=== PATIENT | male | born 1975 | race Caucasian/White ===

== ENCOUNTER 2016-11-06 15:49 | Inpatient (IN) | payer OTHER ==
--- NOTE | 2016-11-06 16:32 | PDOC ---
History of Present Illness - General History Source: Patient Exam Limitations: No Limitations - History of Present Illness Initial Comments: 11/06/16 17:31 The patient is a 41 year old man with a history of alcoholic cirrhosis and ascites. Presents to the ED complaining of 2 days of diffuse abdominal pain. Defer to resident note for further details. <Najma Amadormichelle - Last Filed: 11/06/16 18:29> <Dayo Larios - Last Filed: 11/06/16 20:27> - General Chief Complaint: Pain, Acute Stated Complaint: ABD PAIN Time Seen by Provider: 11/06/16 16:32 Past History <Ramy Amadorjasmine - Last Filed: 11/06/16 18:29> - Past Medical History Asthma: Yes (Pt is on MDI) Cardiac Disorders: No COPD: No Diabetes: No GI Disorders: Yes Disorders: No HTN: No Kidney Stones: No Suicide Attempt (Hx): No Seizures: No - Surgical History Abdominal Surgery: Yes (TIPS procedure in 2012) - Reproductive History Testicular Surgery: No - Psycho/Social/Smoking Cessation Hx Anxiety: Yes Suicidal Ideation: No Smoking History: Current every day smoker Have you smoked in the past 12 months: Yes Number of Cigarettes Smoked Daily: 3 Information on smoking cessation initiated: No Hx Alcohol Use: No Drug/Substance Use Hx: No Substance Use Type: None Hx Substance Use Treatment: Yes <Dayo Larios - Last Filed: 11/06/16 20:27> - Past Medical History Allergies/Adverse Reactions: Allergies Allergy/AdvReac Type Severity Reaction Status Date / Time banana Allergy Severe Difficulty Verified 11/06/16 15:02 Breathing No Known Drug Allergies Allergy Verified 11/06/16 15:02 Home Medications: Ambulatory Orders Unobtainable [Unobtainable] 11/06/16 Review of Systems - Review of Systems Able to Perform ROS?: Yes Comments:: 11/06/16 17:30 CONSTITUTIONAL: Present: +Chills Absent: Fever, Diaphoresis, Generalized Weakness, Malaise, Loss of Appetite HEENT: Absent: Rhinorrhea, Nasal Congestion, Throat Pain, Throat Swelling, Difficulty Swallowing, Mouth Swelling, Ear Pain, Eye Pain, Visual Changes CARDIOVASCULAR: Present: +Peripheral edema Absent: Chest Pain, Syncope, Palpitations, Irregular Heart Rate, Lightheadedness RESPIRATORY: Absent: Cough, Shortness of Breath, SOB with Exertion, Orthopnea, Wheezing, Stridor, Hemoptysis GASTROINTESTINAL: Present: +Abdominal pain, +Abdominal distension Absent: Nausea, Vomiting, Diarrhea, Constipation, Melena, Hematochezia GENITOURINARY: Present: +Hematuria Absent: Dysuria, Frequency, Urgency, Hesitancy, Flank Pain, Genital Pain MUSCULOSKELETAL: Absent: Myalgia, Arthralgia, Joint Swelling, Back pain, Neck Pain SKIN: Absent: Rash, Itching, Pallor HEMEATOLOGIC/IMMUNOLOGIC: Absent: Easy Bleeding, Easy Bruising, Lymphadenopathy, Frequent infections ENDOCRINE: Absent: Unexplained Weight Gain, Unexplained Weight Loss, Heat Intolerance, Cold Intolerance NEUROLOGIC: Absent: Headache, Focal Weakness, Paresthesias, Vertigo, Lightheadedness, Unsteady Gait, Seizure, Mental Status Changes, Incontinence PSYCHIATRIC: Present: +Alcohol withdrawal Absent: Anxiety, Depression <Max Amador - Last Filed: 11/06/16 18:29> *Physical Exam - Vital Signs Last Vital Signs Temp Pulse Resp BP Pulse Ox 98.7 F 79 18 121/82 99 11/06/16 16:14 11/06/16 16:14 11/06/16 16:14 11/06/16 16:14 11/06/16 16:14 - Physical Exam Comments: 11/06/16 17:29 GENERAL: The patient is awake, alert, and fully oriented, in no acute distress. HEAD: Normal with no signs of trauma. EYES: Right eye subconjunctival hematoma at 6 oclock. Mild scleral icterus. Old ecchymosis in right lower eyelid secondary to fall last week. Pupils equal, round and reactive to light, extraocular movements intact. ENT: Ears normal, nares patent, oropharynx clear without exudates. Moist mucous membranes. NECK: Normal range of motion, supple without lymphadenopathy, JVD, or masses. LUNGS: Breath sounds equal, clear to auscultation bilaterally. No wheezes, and no crackles. HEART: Regular rate and rhythm, normal S1 and S2 without murmur, rub or gallop. ABDOMEN: Soft, but diffusely tender in all 4 quadrants. Normoactive bowel sounds. No guarding, no rebound. No masses. EXTREMITIES: Bilateral pitting edema. Normal range of motion. No clubbing or cyanosis. No cords, erythema, or tenderness. NEUROLOGICAL: Hand tremors. Cranial nerves II through XII grossly intact. Normal speech, normal gait. PSYCH: Normal mood, normal affect. SKIN: Positive spiders. Warm, Dry, normal turgor, no rashes noted. <Max Amador - Last Filed: 11/06/16 18:29> - Vital Signs Last Vital Signs Temp Pulse Resp BP Pulse Ox 98.7 F 79 18 121/82 99 11/06/16 16:14 11/06/16 16:14 11/06/16 16:14 11/06/16 16:14 11/06/16 16:14 <aDyo Larios - Last Filed: 11/06/16 20:27> ED Treatment Course - LABORATORY CBC & Chemistry Diagram: 11/06/16 17:42 11/06/16 17:42 <Max Amador - Last Filed: 11/06/16 18:29> - LABORATORY CBC & Chemistry Diagram: 11/06/16 17:42 11/06/16 17:42 <Dayo Larios - Last Filed: 11/06/16 20:27> Medical Decision Making - Medical Decision Making 11/06/16 20:22 Patient with history of alcohol abuse, daily 1 bottle of vodka, history of alcoholic cirrhosis, prior history of ascites. Patient comes in complaining of abdominal pain and feeling shaky after last drink was 2 AM last night. On examination he has the stigmata of cirrhosis with spider angiomata, anicteric sclera, supple conjunctival hematoma of the right eye, and minor bruises on his skin. His abdominal exam is diffusely tender. Bedside ultrasound was performed to consider possibility of spontaneous bacterial peritonitis. There was no visible ascites to be tapped. Laboratory studies were notable for stigmata of advanced cirrhosis with poor synthetic function. Patient with pancytopenia consistent with hypersplenism, but his platelet count is severely depressed. Repeat CBC ordered for platelet count of 8000. Platelet transfusion of single donor platelets ordered. Patient to be admitted to telemetry for monitoring for alcohol withdrawal. Repeat platelet count pending. <Dayo Larios - Last Filed: 11/06/16 20:27> *DC/Admit/Observation/Transfer - Attestations Scribe Attestion: 11/06/16 17:30 Documentation prepared by Max Amador, acting as medical claims manager for Dayo Larios MD. <Max Amador - Last Filed: 11/06/16 18:29> - Discharge Dispostion Admit: Yes Decision to Admit order Date/Time: 11/06/16 20:26 [facility] 11/06/16 20:26 <Dayo Larios - Last Filed: 11/06/16 20:27> Diagnosis at time of Disposition: Thrombocytopenia Alcoholic cirrhosis of liver Qualifiers: Ascites presence: without ascites Qualified Code(s): K70.30 - Alcoholic cirrhosis of liver without ascites - Discharge Dispostion Condition at time of disposition: Guarded - Referrals Referrals: STAFF,NOT ON [Primary Care Provider] -
[2016-11-06] MEDS ORDERED: morphine CARPU-JECT 4 MG/1 ML DISP.SYRIN IVPUSH ONE (17:10)
--- NOTE | 2016-11-06 17:12 | PDOC ---
History of Present Illness - General Chief Complaint: Pain, Acute Stated Complaint: ABD PAIN Time Seen by Provider: 11/06/16 16:32 History Source: Patient Exam Limitations: No Limitations - History of Present Illness Initial Comments: 41 yo M with h/o asthma, EtOH abuse, pancreatitis and liver cirrhosis with ascites s/p paracethesis and TIPS procedure presented to the ED with abdominal pain x 1 day. Patient stated that he's been drinking since 12 years old, 1 L of vodka/day, last drink was yesterday. The abd pain is located in both RUQ and LLQ, 10/10, stabbing like, intermittent, associated with sob and n/ v. The RUQ pain radiates to RLQ and the LLQ radiates horizontally to RLQ. He also has hematuria daily since 2012 and was told by his doctors that it's related to his failing liver. Denies fever, chills, chest pain, headache, vision change. Past History - Past Medical History Allergies/Adverse Reactions: Allergies Allergy/AdvReac Type Severity Reaction Status Date / Time banana Allergy Severe Difficulty Verified 11/06/16 15:02 Breathing No Known Drug Allergies Allergy Verified 11/06/16 15:02 Home Medications: Ambulatory Orders Albuterol 0.083% Nebulizer Palmira [Ventolin 0.083% Nebulizer Soln -] 1 neb NEB Q6H 11/07/16 Cholestyramine (with Sugar) [Cholestyramine Packet] 4 gm PO DAILY 11/07/16 Folic Acid 1 mg PO DAILY 11/07/16 Pantoprazole Sodium [Protonix -] 40 mg PO BID 11/07/16 Spironolactone [Aldactone] 100 mg PO DAILY 11/07/16 Thiamine HCl [Vitamin B1 -] 100 mg PO DAILY 11/07/16 Asthma: Yes (Pt is on MDI) Cardiac Disorders: No COPD: No Diabetes: No GI Disorders: Yes Disorders: No HTN: No Kidney Stones: No Suicide Attempt (Hx): No Seizures: No - Surgical History Abdominal Surgery: Yes (TIPS procedure in 2012) - Reproductive History Testicular Surgery: No - Psycho/Social/Smoking Cessation Hx Anxiety: Yes Suicidal Ideation: No Smoking History: Current every day smoker Have you smoked in the past 12 months: Yes Number of Cigarettes Smoked Daily: 3 Information on smoking cessation initiated: No Hx Alcohol Use: No Drug/Substance Use Hx: No Substance Use Type: None Hx Substance Use Treatment: Yes Abd/GI Specific PMHX - Complaint Specific PMHX Hepatitis: Yes Pancreatitis: Yes Review of Systems - Review of Systems Able to Perform ROS?: Yes Is the patient limited Tajik proficient: No Constitutional: No: Chills, Fever Respiratory: No: Cough, Shortness of Breath ABD/GI: Yes: Constipated, Nausea, Poor Appetite, Vomiting, Abdominal cramping : Yes: Hematuria Integumentary: No: Pruritus, Rash Neurological: Yes: Tremors *Physical Exam - Vital Signs Last Vital Signs Temp Pulse Resp BP Pulse Ox 98.7 F 79 18 121/82 99 11/06/16 16:14 11/06/16 16:14 11/06/16 16:14 11/06/16 16:14 11/06/16 16:14 - Physical Exam General Appearance: Yes: Moderate Distress HEENT: positive: Pale Conjunctivae, Scleral Icterus (R), Scleral Icterus (L) Respiratory/Chest: positive: Rales (LLL) Cardiovascular: positive: Regular Rhythm, Regular Rate, S1, S2. negative: Murmur Gastrointestinal/Abdominal: positive: Tender, Soft, Guarding, Tenderness. negative: Distended Integumentary: positive: Jaundice Neurologic: positive: Fully Oriented, Alert, Other (tremor on streched hands) ED Treatment Course - LABORATORY CBC & Chemistry Diagram: 11/08/16 05:35 11/08/16 05:35 Medical Decision Making - Medical Decision Making 11/06/16 18:28 41 yo M with h/o EtOH abuse and liver cirrhosis admitted to the ED with abd pain. DDx include SBP, pancreatitis. Will obtain lab work. 11/06/16 19:32 Bedside U/S of abd showed minimal ascites. *DC/Admit/Observation/Transfer Diagnosis at time of Disposition: Thrombocytopenia Alcoholic cirrhosis of liver Qualifiers: Ascites presence: without ascites Qualified Code(s): K70.30 - Alcoholic cirrhosis of liver without ascites - Discharge Dispostion Admit: Yes - Referrals
[2016-11-06] MEDS ORDERED: morphine CARPU-JECT 4 MG/1 ML DISP.SYRIN ONE (17:48)
[2016-11-06 17:50] LABS: BASOPHIL 2.8 % (0-2.0); EOSINOPHIL 0.4 % (0-4.5); MCH 27.2 pg (25.7-33.7); MCHC 31.9 g/dl (32.0-35.9); MEAN CELL VOLUME 85.4 fl (80-96); MEAN PLT VOLUME 8.7 fl (7.5-11.1); NEUTROPHILS 66.5 % (42.8-82.8); RDW 23.1 % (11.9-15.9); WHITE BLOOD COUNT 2.6 K/mm3 (4.0-10.0)
[2016-11-06 18:04] LABS: PLATELET COUNT 8 K/MM3 (134-434)
[2016-11-06 18:16] LABS: INR 1.69 (0.82-1.09); PROTHROMBIN TIME (PATIENT) 18.8 SEC (9.98-11.88)
[2016-11-06 18:19] LABS: ACTIVATED PTT 42.8 SECONDS (26.9-34.4)
[2016-11-06 18:22] LABS: ALBUMIN 2.9 g/dl (3.4-5.0); ALK PHOS 191 U/L (45-117); ANION GAP 11 (8-16); BILIRUBIN,TOTAL 5.1 mg/dL (0.2-1.0); CALCIUM 7.9 mg/dL (8.5-10.1); CO2 25 mmol/L (21-32); COCKROFT - GAULT 213.88; CREATININE 0.5 mg/dL (0.7-1.3); GLUCOSE,RANDOM 82 mg/dL (74-106); SGOT/AST 112 U/L (15-37); SGPT/ALT 23 U/L (12-78); TOT PROT 7.4 g/dl (6.4-8.2)
[2016-11-06] MEDS ORDERED: HYDROmorphone HCL CARPU-JECT 1 MG/1 ML DISP.SYRIN IVPUSH ONE (18:54)
[2016-11-06 20:05] LABS: PLATELET ESTIMATE MARKEDLY DECREASED (NORMAL)
[2016-11-06 20:37] LABS: EOSINOPHIL 0.8 % (0-4.5); MCH 27.4 pg (25.7-33.7); MCHC 32.2 g/dl (32.0-35.9); MEAN CELL VOLUME 85.3 fl (80-96); MEAN PLT VOLUME 8.1 fl (7.5-11.1); NEUTROPHILS 64.4 % (42.8-82.8); RDW 22.5 % (11.9-15.9); WHITE BLOOD COUNT 2.8 K/mm3 (4.0-10.0)
--- NOTE | 2016-11-06 20:40 | HP ---
CHIEF COMPLAINT: abdominal pain PCP: none HISTORY OF PRESENT ILLNESS: 41 yr old man with ETOH abuse, cirrhosis, hx of pancreatitis, hx of ascitis, HTN , asthma, referred from [facility] for abdominal pain. The abdominal pain is nonpositional, diffuse, nonradiating, continuos, feeling like "sharp ice pick" which started 3pm 11/06. The abdominal pain has progressively been getting worse. He had been drinking every day for the past few days, last drink was 2am on Friday. He has had this pain the past due to pancreatitis and his liver. He has had poor po intake for past few days due to drinking, notes 30llb weight loss over 4 months. On friday he tripped and fell hitting his face/right side of head, his uncle called 911 and he was taken to [facility], he says he had a CT scan of the head which was negative for acute hemorrhage and was cleared for discharge with pain medications. denies vomiting, chest pain, sob, fever, diarrhea, constipation, hematuria/ hematochezia. He has a PCP Dr. Barker at [facility] that he has yet to make an appointment with , has a Bead Picker at [facility], but doesn't know the name. Says he was once on the transplant list but due to his ETOH relapse and being Jainism which prohibits blood transfusions he was taken off the list. ER course was notable for: (1) bedside u/s with minimal ascitis (2) low platets, monoplatelets ordered (3) cxry Recent Travel: none PAST MEDICAL HISTORY: Cirrhosis HTN Asthma ETOH abuse- denies withdrawal seizures PAST SURGICAL HISTORY: TIPS procedure 2007, 2012 Social History: [place]/day since he was 12 Alcohol: 1L vodka nearly daily since he was 12, longest abstinence was 2 years Drugs: denies Family History: Denies family history of cancer, HTN, DM, Allergies banana Allergy (Severe, Verified 11/06/16 15:02) Difficulty Breathing No Known Drug Allergies Allergy (Verified 11/06/16 15:02) HOME MEDICATIONS: Home Medications Medication Instructions Recorded Unobtainable [Unobtainable] 11/06/16 REVIEW OF SYSTEMS CONSTITUTIONAL: Present: weight change Absent: fever, chills, diaphoresis, generalized weakness, malaise, loss of appetite HEENT: Absent: rhinorrhea, nasal congestion, throat pain, throat swelling, difficulty swallowing, mouth swelling, ear pain, eye pain, visual changes CARDIOVASCULAR: Absent: chest pain, syncope, palpitations, irregular heart rate, lightheadedness , peripheral edema RESPIRATORY: Absent: cough, shortness of breath, dyspnea with exertion, orthopnea, wheezing, stridor, hemoptysis GASTROINTESTINAL: Present: abdominal pain, Absent: abdominal distension, nausea, vomiting, diarrhea, constipation, melena , hematochezia GENITOURINARY: Absent: dysuria, frequency, urgency, hesitancy, hematuria, flank pain, genital pain MUSCULOSKELETAL: Absent: myalgia, arthralgia, joint swelling, back pain, neck pain SKIN: Absent: rash, itching, pallor HEMATOLOGIC/IMMUNOLOGIC: Absent: easy bleeding, easy bruising, lymphadenopathy, frequent infections ENDOCRINE: Absent: unexplained weight gain, unexplained weight loss, heat intolerance, cold intolerance NEUROLOGIC: Absent: headache, focal weakness or paresthesias, dizziness, unsteady gait, seizure, mental status changes, bladder or bowel incontinence PSYCHIATRIC: Absent: anxiety, depression, suicidal or homicidal ideation, hallucinations. PHYSICAL EXAMINATION Vital Signs - 24 hr 11/06/16 16:14 Temperature 98.7 F Pulse Rate 79 Respiratory 18 Rate Blood Pressure 121/82 O2 Sat by Pulse 99 Oximetry (%) GENERAL: Awake, alert, and fully oriented, in no acute distress. HEAD: Normal with no signs of trauma. EYES: periorbital ecchymosis around right eye, Pupils equal, round and reactive to light, extraocular movements intact, sclera mildy icteric, conjunctiva clear. No lid lag. EARS, NOSE, THROAT: Ears normal, nares patent, oropharynx clear without exudates. Moist mucous membranes. NECK: Normal range of motion, supple without lymphadenopathy, JVD, or masses. LUNGS: Breath sounds with b/l basilar wheezes, no crackles, No accessory muscle use. HEART: Regular rate and rhythm, normal S1 and S2 without murmur, rub or gallop. ABDOMEN: Soft, diffusely tender, not distended, normoactive bowel sounds, no guarding, Hepatomegaly. MUSCULOSKELETAL: Normal range of motion at all joints. No bony deformities or tenderness. No CVA tenderness. UPPER EXTREMITIES: 2+ pulses, warm, well-perfused. No cyanosis. No clubbing. No peripheral edema. LOWER EXTREMITIES: 2+ pulses, warm, well-perfused. No calf tenderness. No peripheral edema. b/l lower legs with hyperpigmented flat macules, no scaling/ dry skin/erythema. NEUROLOGICAL: Cranial nerves II-XII intact. Normal speech. PSYCHIATRIC: Cooperative. Good eye contact. Appropriate mood and affect. SKIN: Warm, dry, normal turgor, no rashes or lesions noted, normal capillary refill. mildly jaundiced on abdomen. Laboratory Results - last 24 hr 11/06/16 11/06/16 11/06/16 17:42 17:42 17:42 WBC 2.6 L RBC 2.99 L Hgb 8.2 L Hct 25.6 L MCV 85.4 MCHC 31.9 L RDW 23.1 H Plt Count 8 L* MPV 8.7 Neutrophils % 66.5 Lymphocytes % 16.9 Monocytes % 13.4 H Eosinophils % 0.4 Basophils % 2.8 H Platelet Estimate Markedly decreased RBC Morphology INR 1.69 H PTT (Actin FS) 42.8 H Sodium 139 Potassium 3.6 Chloride 103 Carbon Dioxide 25 Anion Gap 11 BUN 7 Creatinine 0.5 L Creat Clearance w eGFR > 60 Random Glucose 82 Calcium 7.9 L Total Bilirubin 5.1 H AST 112 H ALT 23 Alkaline Phosphatase 191 H Total Protein 7.4 Albumin 2.9 L Lipase 256 ASSESSMENT/PLAN: 41 yr old man with ETOH abuse, HTN, cirrhosis, asthma referred from [facility] for abdominal pain found to have pancytopenia. - obtain records of CT scan from [facility] and labs, currently patient has no neurological deficiets or complaints of headache. given low platelet count, concern for hemorrhage. - attempt to reach rubbish collection supervisor - mother to bring in home medications, he is on "10-15" medications but doesn't remember what they are. #Pancytopenia, severa thrombocytopenia, hypochromic rbc's - likely due to cirrhosis(MELD score 18) - Hematology consult - monodonor 1 unit platelet transfusion (acceptable for Jainism, patient consented), maintain platelets >20,000 - repeat with peripheral smear/manual differential - r/o HIV, Hepatitis (hepatitis panel), vitamin deficiency(vit b12/folate), iron studies #ETOH withdrawal, visibly tremulous, CIWA 4 - monitor on telemetry for DT - librium taper - Dr. marina consult - banana bag, thiamine 100mg 1 tablet po daily, folic acid 1mg 1 tablet po daily - fall precautions #Abdominal pain - abdominal Ultrasound pending read - low suspicion for pancreatitis given lipase wnl - toradol for pain - zofran 8mg po one dose given, EKG shows QTc 486, avoid Qtc prolonging medication for now #Transminits - likely due to recent ETOH use - repeat LFT panel in the AM - avoid hepatotoxic medications #electrolyte deficiencies - hypomag- 1gm IV mag sulfate, mag ox daily 400mg 1 tablet #nicotine dependence - nicotine gum 2mg q2h prn - smoking cessaiton counseling provided #Diet - low NA #DVT: SCD"s due to thrombocytpenia Visit type - Emergency Visit Emergency Visit: Yes ED Registration Date: 11/06/16 Care time: The patient presented to the Emergency Department on the above date and was hospitalized for further evaluation of their emergent condition. - New Patient This patient is new to me today: Yes Date on this admission: 11/06/16 - Critical Care Critical Care patient: No
--- NOTE | 2016-11-06 20:41 | PN ---
<Emelia Posada - Last Filed: 11/06/16 20:40> Teaching Attending Note Name of Resident: Mars Canales ATTENDING PHYSICIAN STATEMENT I saw and evaluated the patient. I reviewed the resident's note and discussed the case with the resident. I agree with the resident's findings and plan as documented. SUBJECTIVE: OBJECTIVE: ASSESSMENT AND PLAN: <Netta Arnett - Last Filed: 11/06/16 21:55> Teaching Attending Note ATTENDING PHYSICIAN STATEMENT I saw and evaluated the patient. I reviewed the resident's note and discussed the case with the resident. I agree with the resident's findings and plan as documented. SUBJECTIVE: 41 yo M with a PMHx of alcoholic cirrhosis, asthma, ETOH abuse with last drink at 2 am who presents from [facility] with diffuse abdominal pain since 3pm today. Patient states pain as worsened since hes been in the ED. Patient denies Hx of seizures and intubations related to ETOH abuse. He endorses nausea and says he is experiencing the shakes. Patient denies SOB. Patient also reports unassociated recent fall one week ago that resulted in bruising around his right eye. Patient states he was evaluated by a [facility] and was discharged with pain medications. Patient denies vomiting and diarrhea. Patient denies chest pains, palpitations and lightheadedness. OBJECTIVE: Last Vital Signs Temp Pulse Resp BP Pulse Ox 98.7 F 79 18 121/82 99 11/06/16 16:14 11/06/16 16:14 11/06/16 16:14 11/06/16 16:14 11/06/16 16:14 GENERAL: Awake, alert, and fully oriented, in no acute distress HEENT: Atraumatic. PERRLA, EOMI. Moist mucosa. No JVD LUNGS: No distress, speaks full sentences, clear to auscultation bilaterally HEART: Regular rate and rhythm, normal S1 and S2, no murmurs, rubs or gallops, peripheral pulses normal and equal bilaterally. ABDOMEN: Soft, tender to palpation, normoactive bowel sounds. Hepatomegaly. No guarding, no rebound. No masses EXTREMITIES: Normal inspection, Normal range of motion, no edema. No clubbing or Cyanosis. NEUROLOGICAL: Cranial nerves II through XII grossly intact. Normal speech, no focal sensorimotor deficits SKIN: Warm, Dry, normal turgor, no rashes or lesions noted. CBCD WBC 2.8 K/mm3 (4.0-10.0) L 11/06/16 20:27 RBC 3.08 M/mm3 (4.00-5.60) L 11/06/16 20:27 Hgb 8.4 GM/dL (11.7-16.9) L 11/06/16 20:27 Hct 26.3 % (35.4-49) L 11/06/16 20: MCV 85.3 fl (80-96) 11/06/16 20:27 MCHC 32.2 g/dl (32.0-35.9) 11/06/16 20: RDW 22.5 % (11.9-15.9) H 11/06/16 20:27 Plt Count 20 K/MM3 (134-434) L* D 11/06/16 20:27 MPV 8.1 fl (7.5-11.1) 11/06/16 20:27 CMP Sodium 139 mmol/L (136-145) 11/06/16 17:42 Potassium 3.6 mmol/L (3.5-5.1) 11/06/16 17:42 Chloride 103 mmol/L (98-107) 11/06/16 17:42 Carbon Dioxide 25 mmol/L (21-32) 11/06/16 17:42 Anion Gap 11 (8-16) 11/06/16 17:42 BUN 7 mg/dL (7-18) 11/06/16 17:42 Creatinine 0.5 mg/dL (0.7-1.3) L 11/06/16 17:42 Creat Clearance w eGFR > 60 (>60) 11/06/16 17:42 Calcium 7.9 mg/dL (8.5-10.1) L 11/06/16 17:42 Total Bilirubin 5.1 mg/dL (0.2-1.0) H 11/06/16 17:42 AST 112 U/L (15-37) H 11/06/16 17:42 ALT 23 U/L (12-78) 11/06/16 17:42 Alkaline Phosphatase 191 U/L (45-117) H 11/06/16 17:42 Total Protein 7.4 g/dl (6.4-8.2) 11/06/16 17:42 Albumin 2.9 g/dl (3.4-5.0) L 11/06/16 17:42 Chest X-Ray: No acute pulmonary process. ASSESSMENT AND PLAN: 41 yo M with Hx of ETOH abuse, asthma, cirrhosis presents with abdominal pain being admitted for pancytopenia. 1.) Pancytopenia/ Severe thrombocytopenia -check B12/folate -Check HIV/HCB -Check for peripheral smear -Hematology consult -Platelet transfusion -Iron studies -Keep platelets greater than 20,000 -Recheck CBC for diff in AM 2.) ETOH abuse -[facility] protocol -Detox consult -Monitor on Tele 3.) DVT ppx -Thromobocytopenic -Low risk -SCDs 4.) Transaminitis -Most likely due to ETOH abuse 5.) Hyperbilirubinemia -Check direct Bili 6.) Abdominal pain/nausea - abdominal US - CT scan if worsening - lTan PRN Documentation is prepared by Netta Arnett acting as medical collections specialist for Emelia Posada D.O.
[2016-11-06] MEDS ORDERED: chlordiazePOXIDE HCL 25 MG CAPSULE PO PRN (21:42)
[2016-11-06] MEDS ORDERED: ONDANSETRON 4 MG/2 ML VIAL IVPB ONE (21:44)
[2016-11-06] MEDS ORDERED: FOLIC ACID INJECTION - 1 MG, THIAMINE HCL 100 MG, MULTIVIT INJECTION ADULT 10 ML in SOD... IVPB ONE (21:44)
[2016-11-06 22:26] LABS: PLATELET COUNT 20 K/MM3 (134-434); PLATELET ESTIMATE DECREASED (NORMAL)
[2016-11-06] MEDS ORDERED: ONDANSETRON 4 MG/2 ML VIAL ONE (22:44)
[2016-11-06 23:53] LABS: BILIRUBIN,DIRECT 2.7 mg/dL (0.0-0.2); MAGNESIUM 1.3 mg/dL (1.8-2.4); PHOSPHOROUS 2.3 mg/dL (2.5-4.9)
[2016-11-07] MEDS ORDERED: KETOROLAC TROMETHAMINE 15 MG/ML VIAL IVPUSH PRN (00:14)
[2016-11-07] MEDS ORDERED: chlordiazePOXIDE HCL 25 MG CAPSULE ONE (00:50)
[2016-11-07] MEDS: chlordiazePOXIDE HCL 25 MG CAPSULE PO SCH ×5 (00:56→22:44)
[2016-11-07] MEDS ORDERED: MAGNESIUM OXIDE 400 MG TABLET (FP) PO ONE (01:28)
[2016-11-07] MEDS ORDERED: MAGNESIUM SULF 50% (8.12 MEQ/2 ML-1 GM VIAL) IVPB ONE (01:28)
[2016-11-07 03:17] VITALS: BMI 28.7
[2016-11-07 07:04] LABS: MCH 26.9 pg (25.7-33.7); MCHC 31.3 g/dl (32.0-35.9); MEAN CELL VOLUME 85.7 fl (80-96); MEAN PLT VOLUME 8.4 fl (7.5-11.1); RDW 22.9 % (11.9-15.9)
[2016-11-07 07:12] LABS: PLATELET COUNT 29 K/MM3 (134-434); WHITE BLOOD COUNT 1.9 K/mm3 (4.0-10.0)
[2016-11-07 07:50] LABS: ALBUMIN 2.6 g/dl (3.4-5.0); CALCIUM 8.2 mg/dL (8.5-10.1)
[2016-11-07 07:53] LABS: BILIRUBIN,DIRECT 3.2 mg/dL (0.0-0.2); COCKROFT - GAULT 155.39; CREATININE 0.7 mg/dL (0.7-1.3); TOT PROT 6.7 g/dl (6.4-8.2)
[2016-11-07] MEDS ORDERED: LACTULOSE 20 GM/30 ML UDC (FOR ORAL USE ONLY) PO ONE (08:30)
[2016-11-07] MEDS: MAGNESIUM OXIDE 400 MG TABLET (FP) PO SCH (09:05)
[2016-11-07] MEDS: FOLIC ACID 1 MG TABLET (FP) PO SCH (09:05)
[2016-11-07] MEDS: THIAMINE HCL 100 MG TABLET (FP) PO SCH (09:05)
[2016-11-07] MEDS ORDERED: LORAZEPAM CARPU-JECT 2 MG/ML DISP.SYRIN IVPUSH PRN (10:30)
--- NOTE | 2016-11-07 10:44 | PN ---
Physical Exam: SUBJECTIVE: Patient seen and examined. States he is having continuing abdominal pain and some nausea. OBJECTIVE: Vital Signs Period Temp Pulse Resp BP Sys/Johnson Pulse Ox Last 24 Hr 98.3 F-98.9 F 64-81 16-20 118-130/67-82 99-99 GENERAL: The patient is awake, alert, and fully oriented, in no acute distress. HEAD: Normal with no signs of trauma. EYES: PERRLA, extraocular movements intact, sclera icteric, left eye conjunctiva clear, right eye with bruising around orbit and small hematoma of lower conjuncitiva. No ptosis. ENT: Ears normal, nares patent, oropharynx clear without exudates, moist mucous membranes. NECK: Trachea midline, full range of motion, supple. LUNGS: Breath sounds equal, clear to auscultation bilaterally, no wheezes, no crackles, no accessory muscle use. HEART: Regular rate and rhythm, S1, S2 without murmur, rub or gallop. ABDOMEN: Soft, tender to light palpation in all quadrants, normoactive bowel sounds, + guarding, no rebound, hepatomegaly, no masses. EXTREMITIES: 2+ pulses, warm, well-perfused, no edema. NEUROLOGICAL: Cranial nerves II through XII grossly intact. Normal speech, gait not observed. PSYCH: Normal mood, normal affect. SKIN: jaundiced Laboratory Results - last 24 hr 11/07/16 11/07/16 11/07/16 06:00 06:00 06:00 WBC 1.9 L* D RBC 2.91 L Hgb 7.8 L Hct 24.9 L MCV 85.7 MCHC 31.3 L RDW 22.9 H Plt Count 29 L* D MPV 8.4 Neutrophils % Y Lymphocytes % Y Total Absolute Neuts Sodium 141 Potassium 3.2 L Chloride 104 Carbon Dioxide 25 Anion Gap 12 BUN 9 D Creatinine 0.7 D Random Glucose 86 Calcium 8.2 L Total Bilirubin 6.0 H Direct Bilirubin 3.2 H AST 91 H ALT 23 Alkaline Phosphatase 165 H Ammonia Total Protein 6.7 Albumin 2.6 L Vitamin B12 539 Serum Folate 60 H 11/07/16 11/07/16 11/07/16 06:00 07:00 08:35 WBC RBC Hgb Hct MCV MCHC RDW Plt Count MPV Neutrophils % Lymphocytes % Total Absolute Neuts 1.40 Sodium Potassium Chloride Carbon Dioxide Anion Gap BUN Creatinine Random Glucose Calcium Total Bilirubin Direct Bilirubin AST ALT Alkaline Phosphatase Ammonia 49.89 H Total Protein Albumin Vitamin B12 Serum Folate Cancelled Active Medications Generic Name Dose Route Start Last Admin Trade Name Freq PRN Reason Stop Dose Admin Chlordiazepoxide HCl 25 mg 11/06/16 21:42 Librium - PO 11/09/16 21:41 Q4H PRN WITHDRAWAL(CONT SUBST) Chlordiazepoxide HCl 50 mg 11/06/16 23:00 11/07/16 05:56 Librium - PO 11/07/16 17:01 50 mg [id number] RANDALL Administration Chlordiazepoxide HCl 25 mg 11/07/16 23:00 Librium - PO 11/08/16 17:01 [id number] RANDALL Chlordiazepoxide HCl 15 mg 11/08/16 23:00 Librium - PO 11/09/16 17:01 [id number] Folic Acid 1 mg 11/07/16 10:00 11/07/16 09:05 Folic Acid - PO 1 mg DAILY RANDALL Administration Lorazepam 1 mg 11/07/16 10:30 Ativan Injection - IVPUSH Q6H PRN Seizure Magnesium Oxide 400 mg 11/07/16 10:00 11/07/16 09:05 Mag-Ox - PO 400 mg DAILY RANDALL Administration Nicotine Polacrilex 2 mg 11/06/16 21:59 Nicorette Gum - BUC Q2H PRN NICOTINE REPLACEMENT RX Potassium Chloride 40 meq 11/07/16 10:35 K-Dur - PO 11/07/16 10:36 ONCE ONE Thiamine HCl 100 mg 11/07/16 10:00 11/07/16 09:05 Vitamin B1 - PO 100 mg DAILY RANDALL Administration ASSESSMENT/PLAN: 41 year old male with PMH alcoholic cirrhosis with ascites, TIPS procedure 2012, pancreatitis, asthma, and HTN who presented to the ED with 2 days of worsening diffuse abdominal pain and "shakiness." 1. Acute alcohol withdrawal - Drank 1.5 L vodka between 11/05-11/06 - CIWA score 11 today - Librium taper per protocol - Ativan PRN ordered for withdrawal seizures - Continue Folic Acid, Mag Ox, Thiamine 2. Pancytopenia Thrombocytopenia with impaired synthetic function - Platelets 29 (8 on admission) today after 1 unit platelets - Continue to monitor platelets - Bleeding precautions Microcytic Anemia - F/u anemia panel - Pt is a Islam - refusing PRBC transfusion - F/u hematology consult 3. Abdominal Pain - Likely secondary to liver cirrhosis and recent alcohol binge - Ketorolac d/c'ed d/t bleeding risk - Avoid Tylenol, NSAIDs 4. Transaminitis - Likely secondary to alcoholic cirrhosis - Will monitor LFTs 5. Liver Cirrhosis - Pt sees home delivery driver in the [place], does not recall his name - awaiting mom to bring in prescriptions with MD name - Will give one dose of Lactulose for ammonia of 49 - Awaiting home med list from mom - No evidence of hepatic encephalopathy/confusion 6. Elevated INR - likely secondary to liver cirrhosis - monitor 7. HTN - Stable - Unknown if on home meds 8. Asthma - Stable - Unknown if on home meds 9. F/E/N Fluids: Encouraged PO intake Electrolytes: hypokalemic - replacement ordered; mag and phos pending Nutrition: Low-sodium diet 10. Prophylaxis - No anticoagulation at this time secondary to severe thrombocytopenia Dispo: Continues to require inpatient care. FULL CODE Visit type - Emergency Visit Emergency Visit: Yes ED Registration Date: 11/06/16 Care time: The patient presented to the Emergency Department on the above date and was hospitalized for further evaluation of their emergent condition. - New Patient This patient is new to me today: Yes Date on this admission: 11/08/16 - Critical Care Critical Care patient: No
[2016-11-07] MEDS ORDERED: POTASSIUM CHLORIDE TABS 20 MEQ TABLET.ER (FP) PO ONE (11:00)
[2016-11-07 11:20] LABS: MAGNESIUM 1.4 mg/dL (1.8-2.4); PHOSPHOROUS 2.5 mg/dL (2.5-4.9)
[2016-11-07 11:58] LABS: URINE APPEARANCE CLEAR; URINE COLOR AMBER; URINE GLUCOSE (UA) NEGATIVE (NEGATIVE); URINE KETONE NEGATIVE (NEGATIVE); URINE LEUK ESTERASE NEGATIVE (NEGATIVE); URINE NITRITE NEGATIVE (NEGATIVE); URINE PROTEIN NEGATIVE (NEGATIVE); URINE UROBILINOGEN 4.0 E.U/dl E.U./dl (0.2-1.0)
[2016-11-07 12:23] LABS: URINE BLOOD 2+ (NEGATIVE)
[2016-11-07 13:03] LABS: URINE MUCUS RARE; URINE RBC 47 /hpf (0-3); URINE WBC 2 /hpf (3-5)
--- NOTE | 2016-11-07 13:27 | EKG ---
Test Reason : Blood Pressure : / mmHG Vent. Rate : 064 BPM Atrial Rate : 064 BPM P-R Int : 138 ms QRS Dur : 100 ms QT Int : 472 ms P-R-T Axes : 045 -35 005 degrees QTc Int : 486 ms NORMAL SINUS RHYTHM WITH SINUS ARRHYTHMIA LEFT AXIS DEVIATION MINIMAL VOLTAGE CRITERIA FOR LVH, MAY BE NORMAL VARIANT PROLONGED QT ABNORMAL ECG NO PREVIOUS ECGS AVAILABLE Confirmed by JOHN GONZALEZ MD ([id number]) on 11/07/2016 1:26:42 PM Referred By: Confirmed By:JOHN GONZALEZ MD
[2016-11-07 14:00] LABS: METAMYELOCYTE 2 % (0-2)
--- NOTE | 2016-11-07 14:49 | CONSULT ---
[id number] Mark Canales - History History of Present Illness: 41 y/o man with hx. of cirrhosis of the liver admitted with anemia,jaundice & withdrawal sx. - History Source History Provided By: Patient, Medical Record - Alcohol/Substance Use Hx Alcohol Use: Yes (1 liter vodka per day) - Current Drug/Alcohol Use Alcohol Route: Oral Frequency: Daily Amount used: Vodka 1 liter Age of first use: 12 Date of Last Use: 11/05/16 - Significant Medical Findings: Laboratory Results - last 24 hr 11/06/16 11/06/16 11/06/16 17:42 17:42 17:42 WBC 2.6 L RBC 2.99 L Hgb 8.2 L Hct 25.6 L MCV 85.4 MCHC 31.9 L RDW 23.1 H Plt Count 8 L* MPV 8.7 Neutrophils % 66.5 Lymphocytes % 16.9 Monocytes % 13.4 H Eosinophils % 0.4 Basophils % 2.8 H Total Absolute Neuts Metamyelocytes Myelocytes Platelet Estimate Markedly decreased RBC Morphology INR 1.69 H PTT (Actin FS) 42.8 H Sodium 139 Potassium 3.6 Chloride 103 Carbon Dioxide 25 Anion Gap 11 BUN 7 Creatinine 0.5 L Creat Clearance w eGFR > 60 Random Glucose 82 Calcium 7.9 L Phosphorus Magnesium Total Bilirubin 5.1 H Direct Bilirubin AST 112 H ALT 23 Alkaline Phosphatase 191 H Ammonia Total Protein 7.4 Albumin 2.9 L Lipase 256 Vitamin B12 Serum Folate Urine Color Urine Appearance Urine pH Ur Specific [place] Urine Protein Urine Glucose (UA) Urine Ketones Urine Blood Urine Nitrite Urine Bilirubin Urine Urobilinogen Ur Leukocyte Esterase Urine RBC Urine WBC Ur Epithelial Cells Urine Mucus Blood Type Antibody Screen 11/06/16 11/06/16 11/06/16 17:42 20:27 20:27 WBC 2.8 L RBC 3.08 L Hgb 8.4 L Hct 26.3 L MCV 85.3 MCHC 32.2 RDW 22.5 H Plt Count 20 L* D MPV 8.1 Neutrophils % 64.4 Lymphocytes % 15.3 Monocytes % 18.5 H Eosinophils % 0.8 D Basophils % 1.0 Total Absolute Neuts Metamyelocytes Myelocytes Platelet Estimate Decreased RBC Morphology INR PTT (Actin FS) Sodium Potassium Chloride Carbon Dioxide Anion Gap BUN Creatinine Creat Clearance w eGFR Random Glucose Calcium Phosphorus 2.3 L Magnesium 1.3 L Total Bilirubin Direct Bilirubin 2.7 H AST ALT Alkaline Phosphatase Ammonia Total Protein Albumin Lipase Vitamin B12 Serum Folate Urine Color Urine Appearance Urine pH Ur Specific [place] Urine Protein Urine Glucose (UA) Urine Ketones Urine Blood Urine Nitrite Urine Bilirubin Urine Urobilinogen Ur Leukocyte Esterase Urine RBC Urine WBC Ur Epithelial Cells Urine Mucus Blood Type O POSITIVE Antibody Screen Negative 11/07/16 11/07/16 11/07/16 06:00 06:00 06:00 WBC 1.9 L* D RBC 2.91 L Hgb 7.8 L Hct 24.9 L MCV 85.7 MCHC 31.3 L RDW 22.9 H Plt Count 29 L* D MPV 8.4 Neutrophils % 48.0 D Lymphocytes % 42.0 H D Monocytes % 2.0 L D Eosinophils % 2.0 D Basophils % Total Absolute Neuts Metamyelocytes 2 Myelocytes 2 Platelet Estimate RBC Morphology INR PTT (Actin FS) Sodium 141 Potassium 3.2 L Chloride 104 Carbon Dioxide 25 Anion Gap 12 BUN 9 D Creatinine 0.7 D Creat Clearance w eGFR Random Glucose 86 Calcium 8.2 L Phosphorus 2.5 Magnesium 1.4 L Total Bilirubin 6.0 H Direct Bilirubin 3.2 H AST 91 H ALT 23 Alkaline Phosphatase 165 H Ammonia Total Protein 6.7 Albumin 2.6 L Lipase Vitamin B12 539 Serum Folate 60 H Urine Color Urine Appearance Urine pH Ur Specific [place] Urine Protein Urine Glucose (UA) Urine Ketones Urine Blood Urine Nitrite Urine Bilirubin Urine Urobilinogen Ur Leukocyte Esterase Urine RBC Urine WBC Ur Epithelial Cells Urine Mucus Blood Type Antibody Screen 11/07/16 11/07/16 11/07/16 06:00 06:00 07:00 WBC RBC Hgb Hct MCV MCHC RDW Plt Count MPV Neutrophils % Lymphocytes % Monocytes % Eosinophils % Basophils % Total Absolute Neuts 1.40 Metamyelocytes Myelocytes Platelet Estimate RBC Morphology INR PTT (Actin FS) Sodium Potassium Chloride Carbon Dioxide Anion Gap BUN Creatinine Creat Clearance w eGFR Random Glucose Calcium Phosphorus Cancelled Magnesium Cancelled Total Bilirubin Direct Bilirubin AST ALT Alkaline Phosphatase Ammonia Total Protein Albumin Lipase Vitamin B12 Serum Folate Cancelled Urine Color Urine Appearance Urine pH Ur Specific [place] Urine Protein Urine Glucose (UA) Urine Ketones Urine Blood Urine Nitrite Urine Bilirubin Urine Urobilinogen Ur Leukocyte Esterase Urine RBC Urine WBC Ur Epithelial Cells Urine Mucus Blood Type Antibody Screen 11/07/16 11/07/16 08:35 10:15 WBC RBC Hgb Hct MCV MCHC RDW Plt Count MPV Neutrophils % Lymphocytes % Monocytes % Eosinophils % Basophils % Total Absolute Neuts Metamyelocytes Myelocytes Platelet Estimate RBC Morphology INR PTT (Actin FS) Sodium Potassium Chloride Carbon Dioxide Anion Gap BUN Creatinine Creat Clearance w eGFR Random Glucose Calcium Phosphorus Magnesium Total Bilirubin Direct Bilirubin AST ALT Alkaline Phosphatase Ammonia 49.89 H Total Protein Albumin Lipase Vitamin B12 Serum Folate Urine Color Janice Urine Appearance Clear Urine pH 7.0 Ur Specific [place] 1.016 Urine Protein Negative Urine Glucose (UA) Negative Urine Ketones Negative Urine Blood 2+ H Urine Nitrite Negative Urine Bilirubin 2.0 Urine Urobilinogen 4.0 e.u/dl Ur Leukocyte Esterase Negative Urine RBC 47 Urine WBC 2 Ur Epithelial Cells Rare Urine Mucus Rare Blood Type Antibody Screen CIWA Score - CIWA Score Nausea/Vomitin Muscle Tremors: 4-Moderate,w/Arms Extend Anxiety: 4-Mod. Anxious/Guarded Agitation: 4-Moderately Restless Paroxysmal Sweats: 3 Orientation: 0-Oriented Tacttile Disturbances: 0-None Auditory Disturbances: 0-None Visual Disturbances: 0-None Headache: 0-None Present CIWA-Ar Total Score: 18 Assessment Plan - Diagnosis (1) Alcoholic cirrhosis of liver Status: Acute Qualifiers: Ascites presence: without ascites Qualified Code(s): K70.30 - Alcoholic cirrhosis of liver without ascites (2) Thrombocytopenia Status: Acute (3) Alcohol dependence with uncomplicated withdrawal Status: Acute - Medication Detox Regimen/Protocol: Librium
[2016-11-07] MEDS ORDERED: ALBUTEROL SO4 0.083% IH SOL 2.5 MG/3 ML VIAL.NEB. NEB PRN (15:00)
[2016-11-07] MEDS ORDERED: PT OWN MED DRAWER 7, Y5N ONE (20:09)
[2016-11-07] MEDS: NICOTINE POLACRILEX 2 MG GUM BUC PRN (20:14)
--- NOTE | 2016-11-07 22:57 | CONSULT ---
Consult - text type - Consultation Consultation Note: Patient seen and examined 41 yo M with h/o asthma, EtOH abuse, pancreatitis and liver cirrhosis with ascites s/p paracethesis and TIPS procedure presented to the ED with abdominal pain x 1 day. Patient stated that he's been drinking since 12 years old, 1 L of vodka/day, last drink was 11/06. The abd pain is located in both RUQ and LLQ, 10/10, stabbing like, intermittent, associated with sob and n/v. The RUQ pain radiates to RLQ and the LLQ radiates horizontally to RLQ. Denies fever , chills, chest pain, headache, vision change. Allergies/Adverse Reactions: Allergies Allergy/AdvReac Type Severity Reaction Status Date / Time banana Allergy Severe Difficulty Verified 11/06/16 15:02 Breathing No Known Drug Allergies Allergy Verified 11/06/16 15:02 Home Medications: Ambulatory Orders Unobtainable [Unobtainable] 11/06/16 PMH Asthma: Yes (Pt is on MDI) alcoholic cirrhosis - Surgical History Abdominal Surgery: Yes (TIPS procedure in 2012) - Psycho/Social/Smoking Cessation Hx Anxiety: Yes Smoking History: Current every day smoker - Vital Signs Last Vital Signs Temp Pulse Resp BP Pulse Ox 98.3 F 68 18 116/56 99 11/08/16 09:39 11/08/16 09:39 11/08/16 09:39 11/08/16 09:39 11/07/16 21:00 - Physical Exam HEENT: positive: Pale Conjunctivae, Scleral Icterus (R), Scleral Icterus (L) Respiratory/Chest: positive: Rales (LLL) Cardiovascular: positive: Regular Rhythm, Regular Rate, S1, S2. negative: Murmur Gastrointestinal/Abdominal: positive: Tender, Soft, Guarding, Tenderness. negative: Distended Integumentary: positive: Jaundice A/P 41 y/o patient with cirrhosis, coagulopathy, thrombocytopenia,pancytopenia, jehovahs wittness, comes in for alcohol detox. Pancytopenia --due to cirrhosis , portal HTN+ marrow suppression from alcohol s/p 1 unit monodonor platelets Patient is accepting to take monodonor platelets, fresh frozen plasma but not PRBCs Discussed at length risks of severe anemia including from cardiac arrest, stroke He understands but is unwilling to accept PRBCs. Discussed benefits/risks of procrit including potentially fatal thrombotic complications,strokes, HTN etc. he understands and is willing to take procrit after understanding risks/benefits ORdered IV iron daily x5 and procrit 68753 units daily x 5, vit. B12 100mcg daily will need to hold procrit for hgb > 10 continue B12/folic acid daily will follow
[2016-11-08] MEDS: chlordiazePOXIDE HCL 25 MG CAPSULE PO SCH ×3 (05:44→18:23)
[2016-11-08 06:06] LABS: SERUM IRON 228 ug/dL (38-169); TOTAL IRON BINDING CAPACITY 249 ug/dL (250-450); UIBC 21 ug/dL (111-343)
[2016-11-08 06:31] LABS: INR 2.06 (0.82-1.09)
[2016-11-08 06:33] LABS: MCH 28.1 pg (25.7-33.7); MCHC 32.7 g/dl (32.0-35.9); MEAN CELL VOLUME 85.9 fl (80-96); MEAN PLT VOLUME 8.4 fl (7.5-11.1); RDW 22.8 % (11.9-15.9); WHITE BLOOD COUNT 2.9 K/mm3 (4.0-10.0)
[2016-11-08 06:55] LABS: ALBUMIN 2.7 g/dl (3.4-5.0); ALK PHOS 193 U/L (45-117); ANION GAP 8 (8-16); CALCIUM 8.3 mg/dL (8.5-10.1); CO2 26 mmol/L (21-32); COCKROFT - GAULT 181.28; CREATININE 0.6 mg/dL (0.7-1.3); GLUCOSE,RANDOM 83 mg/dL (74-106); SGOT/AST 74 U/L (15-37); SGPT/ALT 18 U/L (12-78)
[2016-11-08] MEDS ORDERED: PT OWN MED DRAWER 7, Y5N ONE ×3 (09:27→22:55)
[2016-11-08] MEDS: MAGNESIUM OXIDE 400 MG TABLET (FP) PO SCH (09:34)
[2016-11-08] MEDS: SPIRONOLACTONE 25 MG TABLET (FP) PO SCH (09:34)
[2016-11-08] MEDS: FOLIC ACID 1 MG TABLET (FP) PO SCH (09:34)
[2016-11-08] MEDS: CYANOCOBALAMIN (VITAMIN B-12) 100 MCG TABLET PO SCH (09:35)
[2016-11-08] MEDS: THIAMINE HCL 100 MG TABLET (FP) PO SCH (09:35)
[2016-11-08 09:38] LABS: ANISOCYTOSIS 2+; HYPOCHROMIA 1+; OVALOCYTES FEW; PLATELET ESTIMATE DECREASED (NORMAL)
[2016-11-08 09:40] LABS: PLATELET COUNT 34 K/MM3 (134-434)
[2016-11-08] MEDS: IRON SUCROSE INJECTION 100 MG in SODIUM CHLORIDE 95 ML IVPB SCH (09:53)
[2016-11-08] MEDS ORDERED: SPIRONOLACTONE 25 MG TABLET (FP) PO SCH (10:00)
[2016-11-08] MEDS ORDERED: traMADol HCL 50 MG TABLET PO PRN (10:29)
--- NOTE | 2016-11-08 10:39 | PN ---
[id number]: Vital Signs Period Temp Pulse Resp BP Sys/Johnson Pulse Ox Last 24 Hr 98.3 F-99.4 F 68-85 18-20 101-122/56-73 99 GENERAL: The patient is awake, alert, and fully oriented. Appears mildly anxious and agitated. HEAD: Normal with no signs of trauma. EYES: PERRAL, extraocular movements intact, sclera icteric, left eye conjunctiva clear, right eye conjunctiva with small hematoma. No ptosis. ENT: Ears normal, nares patent, oropharynx clear without exudates, moist mucous membranes. NECK: Trachea midline, full range of motion, supple. LUNGS: Breath sounds equal, clear to auscultation bilaterally, no wheezes, no crackles, no accessory muscle use. HEART: Regular rate and rhythm, S1, S2 without murmur, rub or gallop. ABDOMEN: Soft, tender to palpation in all quadrants, nondistended, normoactive bowel sounds, + guarding, no rebound, hepatomegaly, no splenomegaly, no masses. EXTREMITIES: 2+ pulses, warm, well-perfused, no edema. NEUROLOGICAL: Cranial nerves II through XII grossly intact. Normal speech, gait not observed. PSYCH: Anxious SKIN: Jaundice, ecchymosis of right orbit Laboratory Results - last 24 hr 11/07/16 11/07/16 11/07/16 06:00 06:00 06:00 WBC RBC Hgb Hct MCV MCHC RDW Plt Count MPV Neutrophils % 48.0 D Lymphocytes % 42.0 H D Monocytes % 2.0 L D Eosinophils % 2.0 D Metamyelocytes 2 Myelocytes 2 Platelet Estimate Platelet Comment Hypochromic-Microcytic Anisocytosis Macrocytosis Ovalocytes INR Sodium Potassium Chloride Carbon Dioxide Anion Gap BUN Creatinine Creat Clearance w eGFR Random Glucose Calcium Phosphorus 2.5 Magnesium 1.4 L Iron 228 H TIBC 249 L Iron Saturation 92 H Total Bilirubin AST ALT Alkaline Phosphatase Total Protein Albumin Urine Color Urine Appearance Urine pH Ur Specific [place] Urine Protein Urine Glucose (UA) Urine Ketones Urine Blood Urine Nitrite Urine Bilirubin Urine Urobilinogen Ur Leukocyte Esterase Urine RBC Urine WBC Ur Epithelial Cells Urine Mucus 11/07/16 11/07/16 11/08/16 06:00 10:15 05:35 WBC 2.9 L D RBC 3.05 L Hgb 8.6 L D Hct 26.2 L MCV 85.9 MCHC 32.7 RDW 22.8 H Plt Count 34 L* MPV 8.4 Neutrophils % 67.0 D Lymphocytes % 14.0 D Monocytes % 17.0 H D Eosinophils % 2.0 Metamyelocytes Myelocytes Platelet Estimate Decreased Platelet Comment No clumping noted Hypochromic-Microcytic 1+ Anisocytosis 2+ Macrocytosis 1+ Ovalocytes Few INR Sodium Potassium Chloride Carbon Dioxide Anion Gap BUN Creatinine Creat Clearance w eGFR Random Glucose Calcium Phosphorus Cancelled Magnesium Cancelled Iron TIBC Iron Saturation Total Bilirubin AST ALT Alkaline Phosphatase Total Protein Albumin Urine Color Janice Urine Appearance Clear Urine pH 7.0 Ur Specific [place] 1.016 Urine Protein Negative Urine Glucose (UA) Negative Urine Ketones Negative Urine Blood 2+ H Urine Nitrite Negative Urine Bilirubin 2.0 Urine Urobilinogen 4.0 e.u/dl Ur Leukocyte Esterase Negative Urine RBC 47 Urine WBC 2 Ur Epithelial Cells Rare Urine Mucus Rare 11/08/16 11/08/16 05:35 05:35 WBC RBC Hgb Hct MCV MCHC RDW Plt Count MPV Neutrophils % Lymphocytes % Monocytes % Eosinophils % Metamyelocytes Myelocytes Platelet Estimate Platelet Comment Hypochromic-Microcytic Anisocytosis Macrocytosis Ovalocytes INR 2.06 H Sodium 141 Potassium 3.8 Chloride 107 Carbon Dioxide 26 Anion Gap 8 BUN 8 Creatinine 0.6 L Creat Clearance w eGFR > 60 Random Glucose 83 Calcium 8.3 L Phosphorus Magnesium Iron TIBC Iron Saturation Total Bilirubin 5.0 H AST 74 H ALT 18 D Alkaline Phosphatase 193 H Total Protein 7.0 Albumin 2.7 L Urine Color Urine Appearance Urine pH Ur Specific [place] Urine Protein Urine Glucose (UA) Urine Ketones Urine Blood Urine Nitrite Urine Bilirubin Urine Urobilinogen Ur Leukocyte Esterase Urine RBC Urine WBC Ur Epithelial Cells Urine Mucus Active Medications Generic Name Dose Route Start Last Admin Trade Name Freq PRN Reason Stop Dose Admin Albuterol Sulfate 1 amp 11/07/16 15:00 Ventolin 0.083% Nebulizer Soln - NEB Q6H PRN SHORT OF BREATH/WHEEZING Chlordiazepoxide HCl 25 mg 11/06/16 21:42 Librium - PO 11/09/16 21:41 Q4H PRN WITHDRAWAL(CONT SUBST) Chlordiazepoxide HCl 25 mg 11/07/16 23:00 11/08/16 05:44 Librium - PO 11/08/16 17:01 25 mg [id number] RANDALL Administration Chlordiazepoxide HCl 15 mg 11/08/16 23:00 Librium - PO 11/09/16 17:01 [id number] RANDALL Cyanocobalamin 100 mcg 11/08/16 10:00 11/08/16 09:35 Vitamin B12 - PO 100 mcg DAILY RANDALL Administration Epoetin Willis 20,000 unit 11/08/16 10:00 Procrit - SQ 11/12/16 10:01 DAILY RANDALL Folic Acid 1 mg 11/07/16 10:00 11/08/16 09:34 Folic Acid - PO 1 mg DAILY RANDALL Administration Iron Sucrose 100 mg/ Sodium 100 mls @ 200 mls/hr 11/08/16 10:00 11/08/16 09:53 Chloride IVPB 11/12/16 10:29 200 mls/hr DAILY RANDALL Administration Lorazepam 1 mg 11/07/16 10:30 Ativan Injection - IVPUSH Q6H PRN Seizure Magnesium Oxide 400 mg 11/07/16 10:00 11/08/16 09:34 Mag-Ox - PO 400 mg DAILY RANDALL Administration Nicotine Polacrilex 2 mg 11/06/16 21:59 11/07/16 20:14 Nicorette Gum - BUC 2 mg Q2H PRN Administration NICOTINE REPLACEMENT RX Spironolactone 100 mg 11/08/16 10:00 11/08/16 09:34 Aldactone - PO 100 mg DAILY RANDALL Administration Thiamine HCl 100 mg 11/07/16 10:00 11/08/16 09:35 Vitamin B1 - PO 100 mg DAILY RANDALL Administration ASSESSMENT/PLAN: 41 year-old male with PMH alcoholic cirrhosis with ascites, TIPS procedure in 2012, pancreatitis, asthma, and HTN who presented to the ED with 2 days of worsening diffuse abdominal pain and "shakiness." 1. Acute alcohol withdrawal - Drank 1.5 L vodka between 11/05-11/06 - CIWA score 18 today - Librium taper per protocol; encourage PRN administration - Ativan PRN ordered for withdrawal seizures - Continue Folic Acid, Mag Ox, Thiamine 2. 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 Chronic abdominal pain - Likely secondary to liver cirrhosis and recent alcohol binge - abdominal U/S shows no evidence of ascites or acute pathology - Tramadol 50mg PO x 1 ordered - Avoid Tylenol, NSAIDs 4. Transaminitis - Likely secondary to alcoholic cirrhosis - LFTs trending down - monitor 5. 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 Elevated INR - Likely secondary to liver cirrhosis - INR 2.06 today up from 1.69 on admission - Monitor for bleeding 7. HTN - Stable 8. Asthma - Stable - Continue on Albuterol PRN for SOB/wheezing 9. F/E/N Fluids: Encourage PO intake Electrolytes: Monitor and replace as needed Nutrition: Low-sodium diet 10. Prophylaxis - No a/c at this time 2/2 to severe thrombocytopenia Dispo: Continues to require inpatient care for Librium protocol and IV iron and procrit FULL CODE Visit type - Emergency Visit Emergency Visit: Yes ED Registration Date: 11/06/16 Care time: The patient presented to the Emergency Department on the above date and was hospitalized for further evaluation of their emergent condition. - New Patient This patient is new to me today: No - Critical Care Critical Care patient: No
[2016-11-08] MEDS ORDERED: IRON SUCROSE INJECTION 100 MG in SODIUM CHLORIDE 95 ML IVPB ONE (11:00)
[2016-11-08] MEDS: EPOETIN ALFA 20,000 UNIT/1 ML VIAL SQ SCH (11:36)
[2016-11-08] MEDS: NICOTINE POLACRILEX 2 MG GUM BUC PRN ×2 (11:46→22:56)
[2016-11-08] MEDS ORDERED: ONDANSETRON 4 MG TABLET PO SCH (17:15)
--- NOTE | 2016-11-08 18:14 | PN ---
Progress Note (short form) - Note Progress Note: Patient seen and examined Complains of abdominal pains Last Vital Signs Temp Pulse Resp BP Pulse Ox 99.8 F H 86 18 117/77 100 11/08/16 13:55 11/08/16 13:55 11/08/16 13:55 11/08/16 13:55 11/08/16 09:00 HEENT: icteric, ecchymoses right orbit, right conjuntival hemorrhage Oropharynx: No thrush, No mucositis Nodes: Without adenopathy Cor: RSR, No murmurs, No gallops Lungs: Clear to P&A Abd: diffuse tenderness no rebound, normoactive bowel sounds Ext:No significant edema Skin: No rashes, Integument intact No liver Flap, Tremulous CBC, BMP 11/08/16 05:35 11/08/16 05:35 Current Medications Generic Name Dose Route Start Last Admin Trade Name Freq PRN Reason Stop Dose Admin Albuterol Sulfate 1 amp 11/07/16 15:00 Ventolin 0.083% Nebulizer Soln - NEB Q6H PRN SHORT OF BREATH/WHEEZING Chlordiazepoxide HCl 25 mg 11/06/16 21:42 Librium - PO 11/09/16 21:41 Q4H PRN WITHDRAWAL(CONT SUBST) Chlordiazepoxide HCl 15 mg 11/08/16 23:00 Librium - PO 11/09/16 17:01 [id number] RANDALL Cyanocobalamin 100 mcg 11/08/16 10:00 11/08/16 09:35 Vitamin B12 - PO 100 mcg DAILY RANDALL Administration Epoetin Willis 20,000 unit 11/08/16 10:00 11/08/16 11:36 Procrit - SQ 11/12/16 10:01 20,000 unit DAILY RANDALL Administration Folic Acid 1 mg 11/07/16 10:00 11/08/16 09:34 Folic Acid - PO 1 mg DAILY RANDALL Administration Iron Sucrose 100 mg/ Sodium 100 mls @ 200 mls/hr 11/08/16 10:00 11/08/16 09:53 Chloride IVPB 11/12/16 10:29 200 mls/hr DAILY RANDALL Administration Lorazepam 1 mg 11/07/16 10:30 Ativan Injection - IVPUSH Q6H PRN Seizure Magnesium Oxide 400 mg 11/07/16 10:00 11/08/16 09:34 Mag-Ox - PO 400 mg DAILY RANDALL Administration Multivitamins/Minerals/Vitamin C 1 tab 11/09/16 10:00 Tab-A-Vit - PO DAILY RANDALL Nicotine Polacrilex 2 mg 11/06/16 21:59 11/08/16 11:46 Nicorette Gum - BUC 2 mg Q2H PRN Administration NICOTINE REPLACEMENT RX Spironolactone 100 mg 11/08/16 10:00 11/08/16 09:34 Aldactone - PO 100 mg DAILY RANDALL Administration Thiamine HCl 100 mg 11/07/16 10:00 11/08/16 09:35 Vitamin B1 - PO 100 mg DAILY RANDALL Administration Tramadol HCl 50 mg 11/08/16 10:29 11/08/16 11:37 Ultram - PO 50 mg ONCE PRN Administration Impression: Pancytopenia from portal hypertension and hypersplenism in addition to acute toxic effect of alcohol Allows Platelets and Plasma-- Does not allow RBC Jehovah Witness protocol of Procrit, IV Venofer , B-12, and folate To be given for 5 days. Librium for detox Abdominal pain- normal lipase Suggest GI follow up Repeat Procrit,B-12, Venofer, and folate daily x 5 Daily monitoring of CBC and Chemistries Repeat abdominal imaging.
[2016-11-08] MEDS: chlordiazePOXIDE 5 MG CAPSULE PO SCH (22:26)
[2016-11-08] MEDS ORDERED: traMADol HCL 50 MG TABLET PO ONE (23:00)
[2016-11-09] MEDS: chlordiazePOXIDE 5 MG CAPSULE PO SCH ×3 (06:02→17:37)
[2016-11-09 07:27] LABS: MCH 27.9 pg (25.7-33.7); MCHC 31.8 g/dl (32.0-35.9); MEAN CELL VOLUME 87.7 fl (80-96); MEAN PLT VOLUME 7.8 fl (7.5-11.1); RDW 23.6 % (11.9-15.9); WHITE BLOOD COUNT 3.9 K/mm3 (4.0-10.0)
[2016-11-09 07:35] LABS: PLATELET COUNT 34 K/MM3 (134-434)
[2016-11-09 08:02] LABS: ALBUMIN 2.6 g/dl (3.4-5.0); ANION GAP 10 (8-16); BILIRUBIN,TOTAL 3.7 mg/dL (0.2-1.0); CALCIUM 8.6 mg/dL (8.5-10.1); CO2 24 mmol/L (21-32); COCKROFT - GAULT 181.28; CREATININE 0.6 mg/dL (0.7-1.3); GLUCOSE,RANDOM 88 mg/dL (74-106); MAGNESIUM 1.5 mg/dL (1.8-2.4); PHOSPHOROUS 3.2 mg/dL (2.5-4.9); SGOT/AST 58 U/L (15-37); SGPT/ALT 20 U/L (12-78); TOT PROT 6.7 g/dl (6.4-8.2)
[2016-11-09 08:03] LABS: ALK PHOS 238 U/L (45-117)
[2016-11-09] MEDS ORDERED: ONDANSETRON *ODT* 4 MG TABLET SL ONE (10:00)
--- NOTE | 2016-11-09 10:17 | PN ---
Progress Note (short form) - Note Progress Note: Subjective: The patient was seen and examined at the bedside, he is drinking his contrast for CT complaining of nausea and abdominal pain. EKG repeated, QTc noted, will give one dose of Zofran CIWA 10 Current Medications Generic Name Dose Route Start Last Admin Trade Name Freq PRN Reason Stop Dose Admin Albuterol Sulfate 1 amp 11/07/16 15:00 Ventolin 0.083% Nebulizer Soln - NEB Q6H PRN SHORT OF BREATH/WHEEZING Chlordiazepoxide HCl 25 mg 11/06/16 21:42 Librium - PO 11/09/16 21:41 Q4H PRN WITHDRAWAL(CONT SUBST) Chlordiazepoxide HCl 15 mg 11/08/16 23:00 11/09/16 06:02 Librium - PO 11/09/16 17:01 15 mg [id number] RANDALL Administration Cyanocobalamin 100 mcg 11/08/16 10:00 11/08/16 09:35 Vitamin B12 - PO 100 mcg DAILY RANDALL Administration Epoetin Willis 20,000 unit 11/08/16 10:00 11/08/16 11:36 Procrit - SQ 11/12/16 10:01 20,000 unit DAILY RANDALL Administration Folic Acid 1 mg 11/07/16 10:00 11/08/16 09:34 Folic Acid - PO 1 mg DAILY RANDALL Administration Iron Sucrose 100 mg/ Sodium 100 mls @ 200 mls/hr 11/08/16 10:00 11/08/16 09:53 Chloride IVPB 11/12/16 10:29 200 mls/hr DAILY RANDALL Administration Lorazepam 1 mg 11/07/16 10:30 Ativan Injection - IVPUSH Q6H PRN Seizure Magnesium Oxide 400 mg 11/07/16 10:00 11/08/16 09:34 Mag-Ox - PO 400 mg DAILY RANDALL Administration Magnesium Oxide 400 mg 11/09/16 14:00 Mag-Ox - PO 11/09/16 14:01 ONCE ONE Multivitamins/Minerals/Vitamin C 1 tab 11/09/16 10:00 Tab-A-Vit - PO DAILY RANDALL Nicotine Polacrilex 2 mg 11/06/16 21:59 11/08/16 22:56 Nicorette Gum - BUC 2 mg Q2H PRN Administration NICOTINE REPLACEMENT RX Spironolactone 100 mg 11/08/16 10:00 11/08/16 09:34 Aldactone - PO 100 mg DAILY RANDALL Administration Thiamine HCl 100 mg 11/07/16 10:00 11/08/16 09:35 Vitamin B1 - PO 100 mg DAILY RANDALL Administration Tramadol HCl 50 mg 11/08/16 10:29 11/08/16 11:37 Ultram - PO 50 mg ONCE PRN Administration Objective: Vital Signs Period Temp Pulse Resp BP Sys/Johnson Pulse Ox Last 24 Hr 97.8 F-99.8 F 64-93 18-18 91-117/54-77 100 GENERAL: NAD, A&Ox3 HEENT: Sclera icteric LUNGS: CTA bilaterally HEART: Regular rate and rhythm, S1, S2 without murmur, rub or gallop. ABDOMEN: Soft, tender on palpation, but when patient is distracted and speaker, no tenderness on exam. EXTREMITIES: 2+ pulses, warm, well-perfused, no edema. NEUROLOGICAL: b/l hand tremors on extension Psych: Does not appear anxious SKIN: Jaundice CBCD WBC 3.9 K/mm3 (4.0-10.0) L D 11/09/16 06:00 RBC 3.17 M/mm3 (4.00-5.60) L 11/09/16 06:00 Hgb 8.9 GM/dL (11.7-16.9) L 11/09/16 06:00 Hct 27.8 % (35.4-49) L 11/09/16 06:00 MCV 87.7 fl (80-96) 11/09/16 06:00 MCHC 31.8 g/dl (32.0-35.9) L 11/09/16 06:00 RDW 23.6 % (11.9-15.9) H 11/09/16 06:00 Plt Count 34 K/MM3 (134-434) L* 11/09/16 06:00 MPV 7.8 fl (7.5-11.1) 11/09/16 06:00 CMP Sodium 138 mmol/L (136-145) 11/09/16 06:00 Potassium 4.3 mmol/L (3.5-5.1) 11/09/16 06:00 Chloride 104 mmol/L (98-107) 11/09/16 06:00 Carbon Dioxide 24 mmol/L (21-32) 11/09/16 06:00 Anion Gap 10 (8-16) 11/09/16 06:00 BUN 12 mg/dL (7-18) D 11/09/16 06:00 Creatinine 0.6 mg/dL (0.7-1.3) L 11/09/16 06:00 Creat Clearance w eGFR > 60 (>60) 11/09/16 06:00 Random Glucose 88 mg/dL (74-106) 11/09/16 06:00 Calcium 8.6 mg/dL (8.5-10.1) 11/09/16 06:00 Total Bilirubin 3.7 mg/dL (0.2-1.0) H D 11/09/16 06:00 AST 58 U/L (15-37) H D 11/09/16 06:00 ALT 20 U/L (12-78) 11/09/16 06:00 Alkaline Phosphatase 238 U/L (45-117) H D 11/09/16 06:00 Total Protein 6.7 g/dl (6.4-8.2) 11/09/16 06:00 Albumin 2.6 g/dl (3.4-5.0) L 11/09/16 06:00 Assessment: This is a 41 year old male with PMHx alcoholic cirrhosis with ascites(TIPS procedure in 2012), pancreatitis, asthma, and HTN who presented to the ED with 2 days of worsening diffuse abdominal pain and "shakiness" Plan: 1) Psych: Acute alcohol withdrawal - CIWA score 10 today - Librium taper per protocol - Ativan PRN ordered for withdrawal seizures - Continue Folic Acid - Conitnue Thiamine - Continue Multivitamin - Appreciate Sachin Cord[place] consult 2) Heme: Pancytopenia 2/2 liver disease Thrombocytopenia - Platelets stable, s/p 1u platelets on 11/06 - Bleeding precautions Anemia - Pt is a Islam - refusing PRBC transfusion - Continue Procrit and Iron infusion (Day 2). 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 F/E/N Fluids: Encourage PO intake Electrolytes: Monitor and replace as needed Nutrition: Low-sodium diet 10. Prophylaxis - No a/c at this time 2/2 to severe thrombocytopenia Dispo: Continues to require inpatient care for Librium protocol and IV iron and procrit CODE STATUS: FULL CODE Visit type - Emergency Visit Emergency Visit: Yes ED Registration Date: 11/06/16 Care time: The patient presented to the Emergency Department on the above date and was hospitalized for further evaluation of their emergent condition. - New Patient This patient is new to me today: No - Critical Care Critical Care patient: No
[2016-11-09] MEDS ORDERED: PT OWN MED DRAWER 7, Y5N ONE (10:21)
[2016-11-09] MEDS: IRON SUCROSE INJECTION 100 MG in SODIUM CHLORIDE 95 ML IVPB SCH (10:25)
[2016-11-09] MEDS: SPIRONOLACTONE 25 MG TABLET (FP) PO SCH (10:28)
[2016-11-09] MEDS: THIAMINE HCL 100 MG TABLET (FP) PO SCH (10:28)
[2016-11-09] MEDS: CYANOCOBALAMIN (VITAMIN B-12) 100 MCG TABLET PO SCH (10:29)
[2016-11-09] MEDS: MAGNESIUM OXIDE 400 MG TABLET (FP) PO SCH (10:29)
[2016-11-09] MEDS: MULTIVITAMINS (DAILY MVI) TABLET (FP) PO SCH (10:29)
[2016-11-09] MEDS: FOLIC ACID 1 MG TABLET (FP) PO SCH (10:29)
[2016-11-09] MEDS: NICOTINE POLACRILEX 2 MG GUM BUC PRN (10:30)
--- NOTE | 2016-11-09 11:16 | EKG ---
Test Reason : Blood Pressure : / mmHG Vent. Rate : 067 BPM Atrial Rate : 067 BPM P-R Int : 156 ms QRS Dur : 106 ms QT Int : 444 ms P-R-T Axes : 048 -19 -12 degrees QTc Int : 469 ms SINUS RHYTHM WITH OCCASIONAL PREMATURE VENTRICULAR COMPLEXES INCOMPLETE RIGHT BUNDLE BRANCH BLOCK MODERATE VOLTAGE CRITERIA FOR LVH, MAY BE NORMAL VARIANT BORDERLINE ECG WHEN COMPARED WITH ECG OF 06-NOV-2016 22:57, PREMATURE VENTRICULAR COMPLEXES ARE NOW PRESENT Confirmed by JOHN GONZALEZ MD ([id number]) on 11/09/2016 11:15:41 AM Referred By: Drew DOUGHERTY Confirmed By:JOHN GONZALEZ MD
--- NOTE | 2016-11-09 13:39 | PN ---
Progress Note (short form) - Note Progress Note: Patient seen and examined Complains of abdominal , subxiphoid pains,nausea Had CT scan-results pending Last Vital Signs Temp Pulse Resp BP Pulse Ox 98.1 F 80 20 118/71 100 11/09/16 10:34 11/09/16 10:34 11/09/16 10:34 11/09/16 10:34 11/08/16 20:54 Tremulosus HEENT: NYDIA, EOM Intact, right orbital ecchymoses Oropharynx: No thrush, No mucositis Neck: Supple Cor: RSR, No murmurs, No gallops Lungs: Clear to P&A Abd: diffuse tenderness, no rebound, normoactive bowel sounds Ext:No significant edema Skin: No rashes, Integument intact CBC, BMP 11/09/16 06:00 11/09/16 06:00 Current Medications Generic Name Dose Route Start Last Admin Trade Name Freq PRN Reason Stop Dose Admin Albuterol Sulfate 1 amp 11/07/16 15:00 Ventolin 0.083% Nebulizer Soln - NEB Q6H PRN SHORT OF BREATH/WHEEZING Chlordiazepoxide HCl 25 mg 11/06/16 21:42 Librium - PO 11/09/16 21:41 Q4H PRN WITHDRAWAL(CONT SUBST) Chlordiazepoxide HCl 15 mg 11/08/16 23:00 11/09/16 11:36 Librium - PO 11/09/16 17:01 15 mg [id number] RANDALL Administration Cyanocobalamin 100 mcg 11/08/16 10:00 11/09/16 10:29 Vitamin B12 - PO 100 mcg DAILY RANDALL Administration Epoetin Willis 20,000 unit 11/08/16 10:00 11/08/16 11:36 Procrit - SQ 11/12/16 10:01 20,000 unit DAILY RANDALL Administration Folic Acid 1 mg 11/07/16 10:00 11/09/16 10:29 Folic Acid - PO 1 mg DAILY RANDALL Administration Iron Sucrose 100 mg/ Sodium 100 mls @ 200 mls/hr 11/08/16 10:00 11/09/16 10:25 Chloride IVPB 11/12/16 10:29 200 mls/hr DAILY RANDALL Administration Lorazepam 1 mg 11/07/16 10:30 Ativan Injection - IVPUSH Q6H PRN Seizure Magnesium Oxide 400 mg 11/07/16 10:00 11/09/16 10:29 Mag-Ox - PO 400 mg DAILY RANDALL Administration Magnesium Oxide 400 mg 11/09/16 14:00 Mag-Ox - PO 11/09/16 14:01 ONCE ONE Multivitamins/Minerals/Vitamin C 1 tab 11/09/16 10:00 11/09/16 10:29 Tab-A-Vit - PO 1 tab DAILY RANDALL Administration Nicotine Polacrilex 2 mg 11/06/16 21:59 11/09/16 10:30 Nicorette Gum - BUC 2 mg Q2H PRN Administration NICOTINE REPLACEMENT RX Spironolactone 100 mg 11/08/16 10:00 11/09/16 10:28 Aldactone - PO 100 mg DAILY RANDALL Administration Thiamine HCl 100 mg 11/07/16 10:00 11/09/16 10:28 Vitamin B1 - PO 100 mg DAILY RANDALL Administration Tramadol HCl 50 mg 11/08/16 10:29 11/08/16 11:37 Ultram - PO 50 mg ONCE PRN Administration Impression: Modified [place] Pancytopenia secondary to portal hypertension , hypersplenism, acute toxic effect of alcohol Abdominal pains- CT official report pending- Pain management Alcohol withdrawl Continue with Procrit , Venofer, B-12 and folate x [address] results Librium for substance abuse
[2016-11-09] MEDS ORDERED: MAGNESIUM OXIDE 400 MG TABLET (FP) PO ONE (14:00)
[2016-11-09] MEDS: EPOETIN ALFA 20,000 UNIT/1 ML VIAL SQ SCH (14:14)
[2016-11-09] MEDS ORDERED: traMADol HCL 50 MG TABLET PO ONE (20:45)
--- NOTE | 2016-11-10 06:01 | HOSP ---
Subjective - Review of Symptoms Events since last encounter: Hospitalist Encounter Notified by primary RN, that the patient reports having blurred and double vision x 2 days. Assessed patient at bedside, alert, awake and oriented. Patient reports diplopia to R-eye and blurred vision to L- eye, Patient has rx glasses snellen chart used OD- 20/50, OS 20/40 with glasses Visible tremors noted to upper and lower extremities Will continue to monitor HEENT: Yes: Visual Changes Physical Examination Vital Signs: Vital Signs Temperature 98.3 F 11/10/16 01:59 Pulse Rate 76 11/10/16 01:59 Respiratory Rate 20 11/10/16 01:59 Blood Pressure 113/67 11/10/16 01:59 O2 Sat by Pulse Oximetry (%) 99 11/09/16 21:00 Constitutional: Yes: Well Nourished, Calm Eyes: Yes: EOM Intact, PERRL HENT: Yes: WNL, Atraumatic, Normocephalic Cardiovascular: Yes: WNL, Regular Rate and Rhythm, S1, S2 Respiratory: Yes: WNL, Regular, CTA Bilaterally Peripheral Pulses WNL: Yes Neurological: Yes: Alert, Oriented, Tremors. No: Confusion, Dysarthria, Facial Droop, Loss of Sensation, Weakness ...Motor Strength: WNL, LUE, LLE, RUE, RLE Psychiatric: Yes: WNL, Alert, Oriented Labs: CBC, BMP 11/09/16 06:00 11/09/16 06:00 Intake & Output 11/07/16 11/08/16 11/09/16 11/10/16 23:59 23:59 23:59 23:59 Intake Total 1636 765 340 Output Total 875 1400 Balance 761 -055 340 Weight 80.739 kg Active Medications Generic Name Dose Route Start Last Admin Trade Name Freq PRN Reason Stop Dose Admin Albuterol Sulfate 1 amp 11/07/16 15:00 Ventolin 0.083% Nebulizer Soln - NEB Q6H PRN SHORT OF BREATH/WHEEZING Cyanocobalamin 100 mcg 11/08/16 10:00 11/09/16 10:29 Vitamin B12 - PO 100 mcg DAILY RANDALL Administration Epoetin Willis 20,000 unit 11/08/16 10:00 11/09/16 14:14 Procrit - SQ 11/12/16 10:01 20,000 unit DAILY RANDALL Administration Folic Acid 1 mg 11/07/16 10:00 11/09/16 10:29 Folic Acid - PO 1 mg DAILY RANDALL Administration Iron Sucrose 100 mg/ Sodium 100 mls @ 200 mls/hr 11/08/16 10:00 11/09/16 10:25 Chloride IVPB 11/12/16 10:29 200 mls/hr DAILY RANDALL Administration Lorazepam 1 mg 11/07/16 10:30 Ativan Injection - IVPUSH Q6H PRN Seizure Magnesium Oxide 400 mg 11/07/16 10:00 11/09/16 10:29 Mag-Ox - PO 400 mg DAILY RANDALL Administration Multivitamins/Minerals/Vitamin C 1 tab 11/09/16 10:00 11/09/16 10:29 Tab-A-Vit - PO 1 tab DAILY RANDALL Administration Nicotine Polacrilex 2 mg 11/06/16 21:59 11/09/16 10:30 Nicorette Gum - BUC 2 mg Q2H PRN Administration NICOTINE REPLACEMENT RX Spironolactone 100 mg 11/08/16 10:00 11/09/16 10:28 Aldactone - PO 100 mg DAILY RANDALL Administration Thiamine HCl 100 mg 11/07/16 10:00 11/09/16 10:28 Vitamin B1 - PO 100 mg DAILY RANDALL Administration
[2016-11-10 08:26] LABS: MCH 28.3 pg (25.7-33.7); MCHC 32.2 g/dl (32.0-35.9); MEAN PLT VOLUME 8.2 fl (7.5-11.1); PLATELET COUNT 46 K/MM3 (134-434); RDW 23.6 % (11.9-15.9); WHITE BLOOD COUNT 4.2 K/mm3 (4.0-10.0)
[2016-11-10] MEDS ORDERED: PT OWN MED DRAWER 7, Y5N ONE ×5 (09:36→17:57)
[2016-11-10 09:50] LABS: ALBUMIN 2.7 g/dl (3.4-5.0); ANION GAP 10 (8-16); CALCIUM 8.3 mg/dL (8.5-10.1); CO2 23 mmol/L (21-32); GLUCOSE,RANDOM 81 mg/dL (74-106); MAGNESIUM 1.4 mg/dL (1.8-2.4)
[2016-11-10 09:54] LABS: ALK PHOS 226 U/L (45-117); BILIRUBIN,TOTAL 3.6 mg/dL (0.2-1.0); COCKROFT - GAULT 181.28; CREATININE 0.6 mg/dL (0.7-1.3); SGOT/AST 57 U/L (15-37); SGPT/ALT 17 U/L (12-78); TOT PROT 6.8 g/dl (6.4-8.2)
--- NOTE | 2016-11-10 10:04 | PN ---
Physical Exam: SUBJECTIVE: Patient seen and examined. He denies blurry vision/ double vision at this time. His abdominal pain is referring to his spine, however the pain is bearable. Events: - c/p double vision and blurry vision OBJECTIVE: Vital Signs Period Temp Pulse Resp BP Sys/Johnson Pulse Ox Last 24 Hr 98.0 F-98.4 F 74-93 18-20 102-118/54-71 99-100 PE Neuro: alert, awake, cn 2-12intact HEENT: denies blurry vision, diplopia Pulm: CAB CV: s1 s2 rrr no mrg Abd: diffuse RUQ abd pain and lower abd with deep palpation, soft, +bs Ext: no le edema, warm Skin: skin intact, lower ext diffuse non acute chronic skin irregularities Laboratory Results - last 24 hr 11/10/16 11/10/16 07:05 07:05 WBC 4.2 RBC 3.07 L Hgb 8.7 L Hct 27.0 L MCV 88.0 MCHC 32.2 RDW 23.6 H Plt Count 46 L D MPV 8.2 Neutrophils % Y Lymphocytes % Y Sodium 137 Potassium 4.0 Chloride 104 Carbon Dioxide 23 Anion Gap 10 BUN 10 Creatinine 0.6 L Creat Clearance w eGFR > 60 Random Glucose 81 Calcium 8.3 L Magnesium 1.4 L Total Bilirubin 3.6 H AST 57 H ALT 17 Alkaline Phosphatase 226 H Total Protein 6.8 Albumin 2.7 L Active Medications Generic Name Dose Route Start Last Admin Trade Name Freq PRN Reason Stop Dose Admin Albuterol Sulfate 1 amp 11/07/16 15:00 Ventolin 0.083% Nebulizer Soln - NEB Q6H PRN SHORT OF BREATH/WHEEZING Cyanocobalamin 100 mcg 11/08/16 10:00 11/09/16 10:29 Vitamin B12 - PO 100 mcg DAILY RANDALL Administration Epoetin Willis 20,000 unit 11/08/16 10:00 11/09/16 14:14 Procrit - SQ 11/12/16 10:01 20,000 unit DAILY RANDALL Administration Folic Acid 1 mg 11/07/16 10:00 11/09/16 10:29 Folic Acid - PO 1 mg DAILY RANDALL Administration Iron Sucrose 100 mg/ Sodium 100 mls @ 200 mls/hr 11/08/16 10:00 11/09/16 10:25 Chloride IVPB 11/12/16 10:29 200 mls/hr DAILY RANDALL Administration Lorazepam 1 mg 11/07/16 10:30 Ativan Injection - IVPUSH Q6H PRN Seizure Magnesium Oxide 400 mg 11/07/16 10:00 11/09/16 10:29 Mag-Ox - PO 400 mg DAILY RANDALL Administration Multivitamins/Minerals/Vitamin C 1 tab 11/09/16 10:00 11/09/16 10:29 Tab-A-Vit - PO 1 tab DAILY RANDALL Administration Nicotine Polacrilex 2 mg 11/06/16 21:59 11/09/16 10:30 Nicorette Gum - BUC 2 mg Q2H PRN Administration NICOTINE REPLACEMENT RX Spironolactone 100 mg 11/08/16 10:00 11/09/16 10:28 Aldactone - PO 100 mg DAILY RANDALL Administration Thiamine HCl 100 mg 11/07/16 10:00 11/09/16 10:28 Vitamin B1 - PO 100 mg DAILY RANDALL Administration Assessment: 41 year old male with PMHx alcoholic cirrhosis with ascites (TIPS procedure in 2012), pancreatitis, asthma, and HTN admitted with 2 days of worsening diffuse abdominal pain and "shakiness". Plan: 1. Chronic abdominal pain - CTAP 11/09: subcapsular fluid collection ventral aspect of the hepatic lobe ? chronic vs sub acte, focal density w/in R hepatic lobe posteriorly ?fibrosis, fatty infiltrate, neoplasm, mild-mod several dilated bile ducts w/in L hepatic lobe - Will discuss with radiology tomorrow re most appropriate test going fwd MRI abd vs triple phase - Avoid Tylenol, NSAIDs 2. Anemia - Pt is a Spiritism - refusing PRBC transfusion - Continue Procrit and Iron infusion (Day 3/5); completed 11/12 3. Acute alcohol withdrawal - Completed librium taper - Ativan PRN - Continue Folic Acid/Thiamine/MVI 4. Pancytopenia 2/2 liver disease 5. Thrombocytopenia - Platelets stable, s/p 1u platelets on 11/06 6. Transaminitis - d/t alcoholic cirrhosis - Elevated alk phos possible d/t hepatic dilation; work up in progress 7. 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 Elevated INR - Likely secondary to liver cirrhosis - No over signs of bleeding or planned procedures at this time 9. HTN - Stable 10 .Asthma - Not in exacerbation - Albuterol PRN for SOB/wheezing 11. Prophylaxis - No a/c at this time 2/2 to severe thrombocytopenia Visit type - Emergency Visit Emergency Visit: Yes ED Registration Date: 11/06/16 Care time: The patient presented to the Emergency Department on the above date and was hospitalized for further evaluation of their emergent condition. - New Patient This patient is new to me today: Yes Date on this admission: 11/10/16 - Critical Care Critical Care patient: No
[2016-11-10] MEDS: IRON SUCROSE INJECTION 100 MG in SODIUM CHLORIDE 95 ML IVPB SCH (10:11)
[2016-11-10] MEDS: MULTIVITAMINS (DAILY MVI) TABLET (FP) PO SCH (10:12)
[2016-11-10] MEDS: FOLIC ACID 1 MG TABLET (FP) PO SCH (10:12)
[2016-11-10] MEDS: CYANOCOBALAMIN (VITAMIN B-12) 100 MCG TABLET PO SCH (10:12)
[2016-11-10] MEDS: SPIRONOLACTONE 25 MG TABLET (FP) PO SCH (10:12)
[2016-11-10] MEDS: MAGNESIUM OXIDE 400 MG TABLET (FP) PO SCH (10:12)
[2016-11-10] MEDS: THIAMINE HCL 100 MG TABLET (FP) PO SCH (10:12)
[2016-11-10 10:22] LABS: ANISOCYTOSIS 2+; HYPOCHROMIA 2+; PLATELET COMMENT2 NO CLOTTING DETECTED; PLATELET ESTIMATE MARKEDLY DECREASED (NORMAL); POIKILOCYTOSIS 2+; POLYCHROMASIA 1+
[2016-11-10] MEDS ORDERED: MAGNESIUM SULF 50% (8.12 MEQ/2 ML-1 GM VIAL) IVPB ONE (10:45)
[2016-11-10] MEDS: EPOETIN ALFA 20,000 UNIT/1 ML VIAL SQ SCH (12:11)
--- NOTE | 2016-11-10 12:36 | PN ---
Progress Note (short form) - Note Progress Note: Patient seen and examined Complains of diplopia right eye and blurry vision left eye Last Vital Signs Temp Pulse Resp BP Pulse Ox 98.2 F 74 20 102/54 99 11/10/16 06:00 11/10/16 06:00 11/10/16 06:00 11/10/16 06:00 11/09/16 21:00 HEENT: NYDIA, EOM Intact Oropharynx: No thrush, No mucositis Cor: RSR, No murmurs, No gallops Lungs: Clear to P&A Abd: diffuse tenderness Ext:No significant edema Skin: No rashes, Integument intact CBC, BMP 11/10/16 07:05 11/10/16 07:05 Current Medications Generic Name Dose Route Start Last Admin Trade Name Freq PRN Reason Stop Dose Admin Albuterol Sulfate 1 amp 11/07/16 15:00 Ventolin 0.083% Nebulizer Soln - NEB Q6H PRN SHORT OF BREATH/WHEEZING Cyanocobalamin 100 mcg 11/08/16 10:00 11/10/16 10:12 Vitamin B12 - PO 100 mcg DAILY RANDALL Administration Epoetin Willis 20,000 unit 11/08/16 10:00 11/10/16 12:11 Procrit - SQ 11/12/16 10:01 20,000 unit DAILY RANDALL Administration Folic Acid 1 mg 11/07/16 10:00 11/10/16 10:12 Folic Acid - PO 1 mg DAILY RANDALL Administration Iron Sucrose 100 mg/ Sodium 100 mls @ 200 mls/hr 11/08/16 10:00 11/10/16 10:11 Chloride IVPB 11/12/16 10:29 200 mls/hr DAILY RANDALL Administration Magnesium Oxide 400 mg 11/07/16 10:00 11/10/16 10:12 Mag-Ox - PO 400 mg DAILY RANDALL Administration Multivitamins/Minerals/Vitamin C 1 tab 11/09/16 10:00 11/10/16 10:12 Tab-A-Vit - PO 1 tab DAILY RANDALL Administration Nicotine Polacrilex 2 mg 11/06/16 21:59 11/09/16 10:30 Nicorette Gum - BUC 2 mg Q2H PRN Administration NICOTINE REPLACEMENT RX Spironolactone 100 mg 11/08/16 10:00 11/10/16 10:12 Aldactone - PO 100 mg DAILY RANDALL Administration Thiamine HCl 100 mg 11/07/16 10:00 11/10/16 10:12 Vitamin B1 - PO 100 mg DAILY RANDALL Administration Impression: Modified [place] CT compatible with cirrhosis, portal hypertension, varices, TIPS, bile duct dilatation, abnormal liver appearance Pancytopenia secondary to acute alcoholic effect on bone marrow and hypersplenism Ocular symptoms Plan: Continue total of 5 days of venofer, Procrit ,B-12 and folate MRI of abdomen Opthamology consult AFP, CEA, Ca-19.9
[2016-11-11 07:23] LABS: MCH 28.5 pg (25.7-33.7); MCHC 32.4 g/dl (32.0-35.9); MEAN CELL VOLUME 88.1 fl (80-96); MEAN PLT VOLUME 8.4 fl (7.5-11.1); PLATELET COUNT 53 K/MM3 (134-434); RDW 24.7 % (11.9-15.9); WHITE BLOOD COUNT 4.5 K/mm3 (4.0-10.0)
[2016-11-11] MEDS ORDERED: PT OWN MED DRAWER 7, Y5N ONE ×2 (09:40→20:21)
[2016-11-11] MEDS: MULTIVITAMINS (DAILY MVI) TABLET (FP) PO SCH (09:43)
[2016-11-11] MEDS: FOLIC ACID 1 MG TABLET (FP) PO SCH (09:43)
[2016-11-11] MEDS: MAGNESIUM OXIDE 400 MG TABLET (FP) PO SCH ×2 (09:43→21:31)
[2016-11-11] MEDS: THIAMINE HCL 100 MG TABLET (FP) PO SCH (09:43)
[2016-11-11] MEDS: IRON SUCROSE INJECTION 100 MG in SODIUM CHLORIDE 95 ML IVPB SCH (09:44)
[2016-11-11] MEDS: NADOLOL 20 MG TABLET (FP) PO SCH (09:44)
[2016-11-11] MEDS: SPIRONOLACTONE 25 MG TABLET (FP) PO SCH (09:44)
[2016-11-11] MEDS: CYANOCOBALAMIN (VITAMIN B-12) 100 MCG TABLET PO SCH (09:45)
[2016-11-11] MEDS: EPOETIN ALFA 20,000 UNIT/1 ML VIAL SQ SCH (10:47)
[2016-11-11 12:03] LABS: PLATELET ESTIMATE DECREASED (NORMAL)
--- NOTE | 2016-11-11 14:41 | PN ---
Progress Note (short form) - Note Progress Note: Ophthalmology Consult cc: diplopia and blurred vision for past week. 41 yo male with history of alcohol abuse and cirrhosis fell last week and hit left side of face. He has been experiencing diplopia and blurred vision since then. medical summary and CT of head reviewed. Va at near 20/50 OU. Monocular diplopia OD. PERRLA EOM Full OU and orthotropic CVF: Full OU Anterior exam significant for mild ecchymosis of right lower lid Cortical cataract OU Dilated exam (Tropicamide 1% OU) Fundus: normal vasculature and retina/macula optic disc: [place] and sharp OU A/P: Monocular diplopia and blurred vision likely secondary to cataract OU. He may also have an uncorrected refractive error as it has been a while since he has had his glasses changed. No neurologic cause of diplopia. I advised him to return to his eye doctor after he is discharged. Retinal detachment signs and symptoms also reviewed.
[2016-11-11] MEDS ORDERED: MAGNESIUM SULF 50% (8.12 MEQ/2 ML-1 GM VIAL) IVPB ONE (15:31)
--- NOTE | 2016-11-11 15:36 | PN ---
Physical Exam: SUBJECTIVE: Patient seen and examined he is eating lunch ([employer]) brought by family. He says hes still in a lot of pain. OBJECTIVE: Vital Signs Period Temp Pulse Resp BP Sys/Johnson Pulse Ox Last 24 Hr 98.2 F-98.5 F 75-99 20-20 105-120/61-78 98-98 PE Neuro: alert, awake, cn 2-12intact HEENT: r diplopia Pulm: CtAB CV: s1 s2 rrr no mrg Abd: diffuse abdominal pain, tenderness w/ palpation lower abdominal pain Ext: no le edema, warm Laboratory Results - last 24 hr 11/11/16 11/11/16 05:41 05:41 WBC 4.5 RBC 3.01 L Hgb 8.6 L Hct 26.5 L MCV 88.1 MCHC 32.4 RDW 24.7 H Plt Count 53 L MPV 8.4 Neutrophils % 65.0 D Lymphocytes % 19.0 D Monocytes % 15.0 H D Band Neutrophils 1.0 Differential Comment Manual diff done Platelet Estimate Decreased Magnesium 1.5 L Active Medications Generic Name Dose Route Start Last Admin Trade Name Freq PRN Reason Stop Dose Admin Albuterol Sulfate 1 amp 11/07/16 15:00 Ventolin 0.083% Nebulizer Soln - NEB Q6H PRN SHORT OF BREATH/WHEEZING Cyanocobalamin 100 mcg 11/08/16 10:00 11/11/16 09:45 Vitamin B12 - PO 100 mcg DAILY RANDALL Administration Epoetin Willis 20,000 unit 11/08/16 10:00 11/11/16 10:47 Procrit - SQ 11/12/16 10:01 20,000 unit DAILY RANDALL Administration Folic Acid 1 mg 11/07/16 10:00 11/11/16 09:43 Folic Acid - PO 1 mg DAILY RANDALL Administration Iron Sucrose 100 mg/ Sodium 100 mls @ 200 mls/hr 11/08/16 10:00 11/11/16 09:44 Chloride IVPB 11/12/16 10:29 200 mls/hr DAILY RANDALL Administration Magnesium Oxide 400 mg 11/11/16 22:00 Mag-Ox - PO BID RANDALL Multivitamins/Minerals/Vitamin C 1 tab 11/09/16 10:00 11/11/16 09:43 Tab-A-Vit - PO 1 tab DAILY RANDALL Administration Nadolol 20 mg 11/11/16 10:00 11/11/16 09:44 Corgard - PO 20 mg DAILY RANDALL Administration Nicotine Polacrilex 2 mg 11/06/16 21:59 11/09/16 10:30 Nicorette Gum - BUC 2 mg Q2H PRN Administration NICOTINE REPLACEMENT RX Spironolactone 100 mg 11/08/16 10:00 11/11/16 09:44 Aldactone - PO 100 mg DAILY RANDALL Administration Thiamine HCl 100 mg 11/07/16 10:00 11/11/16 09:43 Vitamin B1 - PO 100 mg DAILY RANDALL Administration -Imaging: CTAP 11/09: subcapsular fluid collection ventral aspect of the hepatic lobe ? chronic vs sub acte, focal density w/in R hepatic lobe posteriorly ?fibrosis, fatty infiltrate, neoplasm, mild-mod several dilated bile ducts w/in L hepatic lobe Assessment: 41 year old male with PMHx alcoholic cirrhosis with ascities (TIPS procedure in 2012), pancreatitis, asthma, and HTN admitted with 2 days of worsening diffuse abdominal pain and "shakiness". Plan: 1. Chronic abdominal pain - D/w Dr. Jaime, will order a Us doppler Abd to assess for tips shunt patency , eval hepatic artery and vein 2. Liver Cirrhosis with varices and portal htn - S/p TIPS 2012 - Continue Spironolactone - Continue nadaolol 20mg daily for - Pt does not know name of anaesthesiologist 3. Anemia, chronic - Pt is a Ep[employer] - refusing PRBC transfusion - Continue Procrit and Iron infusion (Day 4/5); completed 11/12 4. Diplopia/blurry vision - Evaluated by Optho, Monocular diplopia (R) and blurry vision likely due to b/ l cataracts - Will need outpt follow up, no neurologic cause at this time, no retina detachment 5. Acute alcohol withdrawal - Completed librium taper - Daily Folic Acid/Thiamine/MVI 6. Pancytopenia 2/2 liver disease 7. Thrombocytopenia - Platelets improving, s/p 1u platelets on 11/06 8. Transaminitis - d/t alcoholic cirrhosis - Elevated alk phos possible d/t hepatic dilation vs tips obstruction, see above 9. Elevated INR - Likely secondary to liver cirrhosis - No over signs of bleeding or planned procedures at this time 10. HTN - Stable 11. Hypomagnesemia - Replete 2gm mg IV - Increase mg ox BID 12. Prophylaxis - No a/c at this time 2/2 to severe thrombocytopenia Visit type - Emergency Visit Emergency Visit: Yes ED Registration Date: 11/06/16 Care time: The patient presented to the Emergency Department on the above date and was hospitalized for further evaluation of their emergent condition. - New Patient This patient is new to me today: No - Critical Care Critical Care patient: No
[2016-11-11] MEDS: NICOTINE POLACRILEX 2 MG GUM BUC PRN (20:25)
[2016-11-12 07:40] LABS: MCH 28.5 pg (25.7-33.7); MCHC 31.8 g/dl (32.0-35.9); MEAN CELL VOLUME 89.8 fl (80-96); MEAN PLT VOLUME 8.3 fl (7.5-11.1); PLATELET COUNT 75 K/MM3 (134-434); RDW 25.3 % (11.9-15.9); WHITE BLOOD COUNT 4.9 K/mm3 (4.0-10.0)
[2016-11-12 08:02] LABS: ALBUMIN 2.6 g/dl (3.4-5.0); ALK PHOS 259 U/L (45-117); ANION GAP 10 (8-16); BILIRUBIN,TOTAL 2.9 mg/dL (0.2-1.0); CALCIUM 8.6 mg/dL (8.5-10.1); CO2 23 mmol/L (21-32); COCKROFT - GAULT 217.54; CREATININE 0.5 mg/dL (0.7-1.3); GLUCOSE,RANDOM 82 mg/dL (74-106); MAGNESIUM 1.8 mg/dL (1.8-2.4); SGOT/AST 57 U/L (15-37); SGPT/ALT 17 U/L (12-78)
[2016-11-12] MEDS: SPIRONOLACTONE 25 MG TABLET (FP) PO SCH (10:00)
[2016-11-12] MEDS: THIAMINE HCL 100 MG TABLET (FP) PO SCH ×2 (10:00→21:07)
[2016-11-12] MEDS: MULTIVITAMINS (DAILY MVI) TABLET (FP) PO SCH ×2 (10:00→21:07)
[2016-11-12] MEDS: CYANOCOBALAMIN (VITAMIN B-12) 100 MCG TABLET PO SCH ×2 (10:00→21:07)
[2016-11-12] MEDS: MAGNESIUM OXIDE 400 MG TABLET (FP) PO SCH ×2 (10:00→21:07)
[2016-11-12] MEDS: NADOLOL 20 MG TABLET (FP) PO SCH (10:00)
[2016-11-12] MEDS: FOLIC ACID 1 MG TABLET (FP) PO SCH ×2 (11:00→21:07)
[2016-11-12] MEDS: IRON SUCROSE INJECTION 100 MG in SODIUM CHLORIDE 95 ML IVPB SCH (11:14)
[2016-11-12] MEDS ORDERED: PT OWN MED DRAWER 7, Y5N ONE (11:14)
[2016-11-12 11:57] LABS: PLATELET ESTIMATE DECREASED (NORMAL)
[2016-11-12] MEDS: EPOETIN ALFA 20,000 UNIT/1 ML VIAL SQ SCH (12:39)
--- NOTE | 2016-11-12 16:40 | PN ---
Physical Exam: SUBJECTIVE: Patient seen and examined. His complaints are still abdominal pain. He is up in bed reading. Denies n/v. OBJECTIVE: Vital Signs Period Temp Pulse Resp BP Sys/Johnson Pulse Ox Last 24 Hr 98 F-98.8 F 65-79 16-18 94-110/47-65 98-99 PE Neuro: alert, awake, cn 2-12intact Pulm: CTAB CV: s1 s2 rrr no mrg Abd: diffuse abdominal pain, tenderness w/ palpation lower abdominal pain Ext: no le edema, warm Laboratory Results - last 24 hr 11/11/16 11/12/16 11/12/16 05:41 05:35 05:35 WBC 4.9 RBC 3.29 L Hgb 9.4 L Hct 29.6 L MCV 89.8 MCHC 31.8 L RDW 25.3 H Plt Count 75 L D MPV 8.3 Neutrophils % 64.0 Lymphocytes % 18.0 Monocytes % 16.0 H Basophils % 1.0 Myelocytes 1 D Differential Comment Manual diff done Platelet Estimate Decreased Sodium 138 Potassium 3.9 Chloride 105 Carbon Dioxide 23 Anion Gap 10 BUN 12 Creatinine 0.5 L Creat Clearance w eGFR > 60 Random Glucose 82 Calcium 8.6 Magnesium 1.8 Total Bilirubin 2.9 H AST 57 H ALT 17 Alkaline Phosphatase 259 H Total Protein 7.0 Albumin 2.6 L Tumor Marker AFP 2.9 Carcinoembryonic Ag 9.0 H CA 19-9 Antigen 1 Active Medications Generic Name Dose Route Start Last Admin Trade Name Freq PRN Reason Stop Dose Admin Cyanocobalamin 100 mcg 11/08/16 10:00 11/12/16 10:00 Vitamin B12 - PO Not Given DAILY RANDALL Folic Acid 1 mg 11/07/16 10:00 11/12/16 11:00 Folic Acid - PO Not Given DAILY RANDALL Magnesium Oxide 400 mg 11/11/16 22:00 11/12/16 10:00 Mag-Ox - PO Not Given BID RANDALL Multivitamins/Minerals/Vitamin C 1 tab 11/09/16 10:00 11/12/16 10:00 Tab-A-Vit - PO Not Given DAILY RANDALL Nadolol 20 mg 11/11/16 10:00 11/12/16 10:00 Corgard - PO Not Given DAILY RANDALL Nicotine Polacrilex 2 mg 11/06/16 21:59 11/11/16 20:25 Nicorette Gum - BUC 2 mg Q2H PRN Administration NICOTINE REPLACEMENT RX Spironolactone 100 mg 11/08/16 10:00 11/12/16 10:00 Aldactone - PO Not Given DAILY RANDALL Thiamine HCl 100 mg 11/07/16 10:00 11/12/16 10:00 Vitamin B1 - PO Not Given DAILY RANDALL -Imaging: CTAP 11/09: subcapsular fluid collection ventral aspect of the hepatic lobe ? chronic vs sub acute, focal density w/in R hepatic lobe posteriorly ?fibrosis, fatty infiltrate, neoplasm, mild-mod several dilated bile ducts w/in L hepatic lobe Assessment: 41 year old male with PMHx alcoholic cirrhosis with ascities (TIPS procedure in 2012), pancreatitis, asthma, and HTN admitted with 2 days of worsening diffuse abdominal pain and "shakiness". Plan: 1. Chronic abdominal pain - D/w Dr. Addison Winston is patent - Abd MRI with contrast/MRCP ordered for today - CEA elevated - Heme/onc seeing 2. 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 Anemia, chronic - Pt is a Jain - refusing PRBC transfusion - Continue Procrit and Iron infusion (Day 5/5); completed toady 4. Diplopia/blurry vision - Evaluated by Optho, Monocular diplopia (R) and blurry vision likely due to b/ l cataracts - Will need outpt follow up, no neurologic cause at this time, no retina detachment 5. Acute alcohol withdrawal - Completed librium taper - Daily Folic Acid/Thiamine/MVI 6. Pancytopenia 2/2 liver disease 7. Thrombocytopenia - Platelets up trending - Transfused 1u platelets on 11/06 8. Transaminitis - d/t alcoholic cirrhosis - Elevated alk phos possible d/t hepatic dilation vs tips obstruction, see above 9. Elevated INR - Likely secondary to liver cirrhosis - No over signs of bleeding or planned procedures at this time 10. HTN - Stable 11. Hypomagnesemia - Resolved - Mg ox BID 12. Prophylaxis - No a/c at this time 2/2 to severe thrombocytopenia Visit type - Emergency Visit Emergency Visit: Yes ED Registration Date: 11/06/16 Care time: The patient presented to the Emergency Department on the above date and was hospitalized for further evaluation of their emergent condition. - New Patient This patient is new to me today: No - Critical Care Critical Care patient: No
--- NOTE | 2016-11-12 17:45 | PN ---
Progress Note (short form) - Note Progress Note: Patient seen and examined Seen by opthomology -note reviewed Continuing on 5 day course of Procrit, venofer, B-12 and folate Has has improvement in hemogram with increase WBC's, Hct, and platelets. Suspect that part of improvement is related to abstinence of alcohol during hospital stay. Last Vital Signs Temp Pulse Resp BP Pulse Ox 98.4 F 69 16 107/49 98 11/12/16 13:41 11/12/16 13:41 11/12/16 13:41 11/12/16 13:41 11/12/16 09:00 HEENT: NYDIA, EOM Intact, ecchymoses below right orbit Oropharynx: No thrush, No mucositis Cor: RSR, No murmurs, No gallops Lungs: Clear to P&A Abd: tenderness improved Ext:No significant edema Skin: No rashes, Integument intact CBC, BMP 11/12/16 05:35 11/12/16 05:35 Current Medications Generic Name Dose Route Start Last Admin Trade Name Freq PRN Reason Stop Dose Admin Cyanocobalamin 100 mcg 11/08/16 10:00 11/12/16 10:00 Vitamin B12 - PO Not Given DAILY RANDALL Folic Acid 1 mg 11/07/16 10:00 11/12/16 11:00 Folic Acid - PO Not Given DAILY RANDALL Magnesium Oxide 400 mg 11/11/16 22:00 11/12/16 10:00 Mag-Ox - PO Not Given BID RANDALL Multivitamins/Minerals/Vitamin C 1 tab 11/09/16 10:00 11/12/16 10:00 Tab-A-Vit - PO Not Given DAILY RANDALL Nadolol 20 mg 11/11/16 10:00 11/12/16 10:00 Corgard - PO Not Given DAILY RANDALL Nicotine Polacrilex 2 mg 11/06/16 21:59 11/11/16 20:25 Nicorette Gum - BUC 2 mg Q2H PRN Administration NICOTINE REPLACEMENT RX Spironolactone 100 mg 11/08/16 10:00 11/12/16 10:00 Aldactone - PO Not Given DAILY RANDALL Thiamine HCl 100 mg 11/07/16 10:00 11/12/16 10:00 Vitamin B1 - PO Not Given DAILY RANDALL Impression: Modified Jehovah Pancytopenia improved Alcohol dependence Abnormal Liver \ Plan: MRI of liver Monitor labs
--- NOTE | 2016-11-12 19:32 | HOSP ---
Subjective - Review of Symptoms Events since last encounter: Hospitalist Encounter Notified by primary RN that the patient reports feeling SOB. Arrived to bedside, patient is alert, awake and oriented, sitting upright reading a book. Patient is on 2LNC initiated by the nurse. Patient reports feeling SOB at rest in his larynx. Patient is speaking in full sentences. Breathing observed to be non- labored. Patient states" I think I'm feeling this way because I miss my cigarettes". Patient has a prn order for Nicotine Gum. Patient reports he will ask the nurse for the gum. On exam Lungs- CTAB Will order stat portable chest xray for comparison to last study 11/06. Reviewed chest xray image, no obvious infiltrate or effusion noted. Patient medicated with Nicotine Gum, resting comfortably per RN Will continue to monitor. Pulmonary: Yes: Dyspnea Cardiovascular: No: Chest Pain, Palpitations Physical Examination Vital Signs: Vital Signs Temperature 98.5 F 11/12/16 18:00 Pulse Rate 74 11/12/16 18:00 Respiratory Rate 18 11/12/16 18:00 Blood Pressure 107/52 11/12/16 18:00 O2 Sat by Pulse Oximetry (%) 98 11/12/16 09:00 Constitutional: Yes: Well Nourished, No Distress, Calm Neck: Yes: WNL, Supple, Trachea Midline Cardiovascular: Yes: WNL, Regular Rate and Rhythm, S1, S2 Respiratory: Yes: WNL, Regular, CTA Bilaterally, On Nasal O2, SOB Neurological: Yes: WNL, Alert, Oriented, Cran Nerves II-XII Intact ...Motor Strength: WNL Psychiatric: Yes: WNL, Alert, Oriented Labs: CBC, BMP 11/12/16 05:35 11/12/16 05:35 Current Medications Generic Name Dose Route Start Last Admin Trade Name Freq PRN Reason Stop Dose Admin Cyanocobalamin 100 mcg 11/08/16 10:00 11/12/16 10:00 Vitamin B12 - PO Not Given DAILY [facility] Folic Acid 1 mg 11/07/16 10:00 11/12/16 11:00 Folic Acid - PO Not Given DAILY [facility] Magnesium Oxide 400 mg 11/11/16 22:00 11/12/16 10:00 Mag-Ox - PO Not Given BID [facility] Multivitamins/Minerals/Vitamin C 1 tab 11/09/16 10:00 11/12/16 10:00 Tab-A-Vit - PO Not Given DAILY RANDALL Nadolol 20 mg 11/11/16 10:00 11/12/16 10:00 Corgard - PO Not Given DAILY RANDALL Nicotine Polacrilex 2 mg 11/06/16 21:59 11/11/16 20:25 Nicorette Gum - BUC 2 mg Q2H PRN Administration NICOTINE REPLACEMENT RX Spironolactone 100 mg 11/08/16 10:00 11/12/16 10:00 Aldactone - PO Not Given DAILY RANDALL Thiamine HCl 100 mg 11/07/16 10:00 11/12/16 10:00 Vitamin B1 - PO Not Given DAILY RANDALL Intake & Output 11/09/16 11/10/16 11/11/16 11/12/16 23:59 23:59 23:59 23:59 Intake Total 340 130 Output Total 500 1957 559 Balance 340 -370 -1226 -966
[2016-11-12] MEDS: NICOTINE POLACRILEX 2 MG GUM BUC PRN (20:25)
[2016-11-13 07:13] LABS: MCH 29.6 pg (25.7-33.7); MCHC 33.4 g/dl (32.0-35.9); MEAN CELL VOLUME 88.5 fl (80-96); PLATELET COUNT 80 K/MM3 (134-434); WHITE BLOOD COUNT 4.6 K/mm3 (4.0-10.0)
[2016-11-13 07:44] LABS: ALBUMIN 2.6 g/dl (3.4-5.0); ALK PHOS 239 U/L (45-117); ANION GAP 6 (8-16); BILIRUBIN,TOTAL 2.8 mg/dL (0.2-1.0); CALCIUM 8.4 mg/dL (8.5-10.1); CO2 26 mmol/L (21-32); COCKROFT - GAULT 155.39; CREATININE 0.7 mg/dL (0.7-1.3); GLUCOSE,RANDOM 90 mg/dL (74-106); SGOT/AST 58 U/L (15-37); SGPT/ALT 18 U/L (12-78); TOT PROT 6.7 g/dl (6.4-8.2)
[2016-11-13] MEDS: NADOLOL 20 MG TABLET (FP) PO SCH (09:46)
[2016-11-13] MEDS: FOLIC ACID 1 MG TABLET (FP) PO SCH (09:46)
[2016-11-13] MEDS: SPIRONOLACTONE 25 MG TABLET (FP) PO SCH (09:46)
[2016-11-13] MEDS: THIAMINE HCL 100 MG TABLET (FP) PO SCH (09:47)
[2016-11-13] MEDS: MAGNESIUM OXIDE 400 MG TABLET (FP) PO SCH ×2 (09:47→22:06)
[2016-11-13] MEDS: MULTIVITAMINS (DAILY MVI) TABLET (FP) PO SCH (09:47)
[2016-11-13] MEDS: CYANOCOBALAMIN (VITAMIN B-12) 100 MCG TABLET PO SCH (09:47)
[2016-11-13 12:39] LABS: PLATELET ESTIMATE DECREASED (NORMAL)
[2016-11-13] MEDS: NICOTINE POLACRILEX 2 MG GUM BUC PRN ×2 (12:49→22:40)
--- NOTE | 2016-11-13 18:34 | PN ---
Physical Exam: SUBJECTIVE: Patient seen and examined. He still has abdominal pain, he is ready to go home. OBJECTIVE: Vital Signs Period Temp Pulse Resp BP Sys/Johnson Pulse Ox Last 24 Hr 97.7 F-98.7 F 71-81 18-18 98-117/57-67 100 PE Neuro: alert, awake, cn 2-12intact Pulm: CTAB CV: s1 s2 rrr no mrg Abd: diffuse abdominal pain, tenderness w/ palpation lower abdominal pain Ext: no le edema, warm Laboratory Results - last 24 hr 11/13/16 11/13/16 05:35 05:35 WBC 4.6 RBC 3.14 L Hgb 9.3 L Hct 27.8 L MCV 88.5 MCHC 33.4 RDW 25.0 H Plt Count 80 L MPV 8.0 Neutrophils % 79.0 D Lymphocytes % 10.0 D Monocytes % 11.0 H Differential Comment Manual diff done Platelet Estimate Decreased Sodium 140 Potassium 3.8 Chloride 108 H Carbon Dioxide 26 Anion Gap 6 L BUN 13 Creatinine 0.7 D Creat Clearance w eGFR > 60 Random Glucose 90 Calcium 8.4 L Total Bilirubin 2.8 H AST 58 H ALT 18 Alkaline Phosphatase 239 H Total Protein 6.7 Albumin 2.6 L Active Medications Generic Name Dose Route Start Last Admin Trade Name Freq PRN Reason Stop Dose Admin Cyanocobalamin 100 mcg 11/08/16 10:00 11/13/16 09:47 Vitamin B12 - PO 100 mcg DAILY RANDALL Administration Folic Acid 1 mg 11/07/16 10:00 11/13/16 09:46 Folic Acid - PO 1 mg DAILY RANDALL Administration Magnesium Oxide 400 mg 11/11/16 22:00 11/13/16 09:47 Mag-Ox - PO 400 mg BID RANDALL Administration Multivitamins/Minerals/Vitamin C 1 tab 11/09/16 10:00 11/13/16 09:47 Tab-A-Vit - PO 1 tab DAILY RANDALL Administration Nadolol 20 mg 11/11/16 10:00 11/13/16 09:46 Corgard - PO 20 mg DAILY RANDALL Administration Nicotine Polacrilex 2 mg 11/06/16 21:59 11/13/16 12:49 Nicorette Gum - BUC 2 mg Q2H PRN Administration NICOTINE REPLACEMENT RX Spironolactone 100 mg 11/08/16 10:00 11/13/16 09:46 Aldactone - PO 100 mg DAILY RANDALL Administration Thiamine HCl 100 mg 11/07/16 10:00 11/13/16 09:47 Vitamin B1 - PO 100 mg DAILY RANDALL Administration -Imaging: CTAP 11/09: subcapsular fluid collection ventral aspect of the hepatic lobe ? chronic vs sub acute, focal density w/in R hepatic lobe posteriorly ?fibrosis, fatty infiltrate, neoplasm, mild-mod several dilated bile ducts w/in L hepatic lobe Assessment: 41 year old male with PMHx alcoholic cirrhosis with ascities (TIPS procedure in 2012), pancreatitis, asthma, and HTN admitted with 2 days of worsening diffuse abdominal pain and "shakiness". Plan: 1. Chronic abdominal pain - D/w Dr. Addison Winston is patent - Abd MRI with contrast/MRCP not done yet, need to eval interhepatic ducts prior to DC - CEA elevated - Heme/onc seeing 2. 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 Anemia, chronic - Pt is a Bahai - refusing PRBC transfusion - Continue Procrit and Iron infusion (Day 5); completed 11/12 4. Diplopia/blurry vision - Evaluated by Optho, Monocular diplopia (R) and blurry vision likely due to b/ l cataracts - Will need outpt follow up, no neurologic cause at this time, no retina detachment 5. Acute alcohol withdrawal - Completed librium taper - Daily Folic Acid/Thiamine/MVI 6. Pancytopenia 2/2 liver disease 7. Thrombocytopenia - Platelets up trending - Transfused 1u platelets on 11/06 8. Transaminitis - d/t alcoholic cirrhosis - Elevated alk phos possible d/t hepatic dilation vs tips obstruction, see above 9. Elevated INR - Likely secondary to liver cirrhosis - No over signs of bleeding or planned procedures at this time 10. HTN - Stable 11. Hypomagnesemia - Resolved - Mg ox BID 12. Prophylaxis - No a/c at this time 2/2 to severe thrombocytopenia Dispo: - Awaiting abd mri/mrcp Visit type - Emergency Visit Emergency Visit: Yes ED Registration Date: 11/06/16 Care time: The patient presented to the Emergency Department on the above date and was hospitalized for further evaluation of their emergent condition. - New Patient This patient is new to me today: No - Critical Care Critical Care patient: No
[2016-11-13] MEDS ORDERED: traMADol HCL 50 MG TABLET PO ONE (22:33)
[2016-11-14 09:20] LABS: ALBUMIN 2.6 g/dl (3.4-5.0); ALK PHOS 232 U/L (45-117); ANION GAP 8 (8-16); BILIRUBIN,TOTAL 2.8 mg/dL (0.2-1.0); CALCIUM 8.1 mg/dL (8.5-10.1); CO2 24 mmol/L (21-32); COCKROFT - GAULT 181.28; CREATININE 0.6 mg/dL (0.7-1.3); GLUCOSE,RANDOM 84 mg/dL (74-106); SGOT/AST 59 U/L (15-37); SGPT/ALT 19 U/L (12-78); TOT PROT 6.7 g/dl (6.4-8.2)
[2016-11-14 09:25] LABS: MCHC 32.8 g/dl (32.0-35.9); MEAN CELL VOLUME 88.4 fl (80-96); MEAN PLT VOLUME 8.2 fl (7.5-11.1); RDW 25.8 % (11.9-15.9); WHITE BLOOD COUNT 3.9 K/mm3 (4.0-10.0)
[2016-11-14] MEDS: MULTIVITAMINS (DAILY MVI) TABLET (FP) PO SCH (09:56)
[2016-11-14] MEDS: MAGNESIUM OXIDE 400 MG TABLET (FP) PO SCH ×2 (09:56→21:48)
[2016-11-14] MEDS: NADOLOL 20 MG TABLET (FP) PO SCH (09:57)
[2016-11-14] MEDS: THIAMINE HCL 100 MG TABLET (FP) PO SCH (09:57)
[2016-11-14] MEDS: SPIRONOLACTONE 25 MG TABLET (FP) PO SCH (09:57)
[2016-11-14] MEDS: FOLIC ACID 1 MG TABLET (FP) PO SCH (09:57)
[2016-11-14 12:22] LABS: METAMYELOCYTE 1 % (0-2)
[2016-11-14 12:23] LABS: PLATELET ESTIMATE DECREASED (NORMAL)
[2016-11-14] MEDS: CYANOCOBALAMIN (VITAMIN B-12) 100 MCG TABLET PO SCH (12:30)
--- NOTE | 2016-11-14 12:48 | PN ---
Physical Exam: SUBJECTIVE: Patient seen and examined. States he has chronic abdominal pain. Denies nausea or vomiting. Does not take medications at home but at one time took Morphine PO He is concerned over becoming addicted to morphine. His mother is at the bedside and she is expressing the same concern. OBJECTIVE: Will start on Ultram prn for pain Monitor pain levels MRI pending Vital Signs Period Temp Pulse Resp BP Sys/Johnson Pulse Ox Last 24 Hr 98.3 F-99.5 F 68-76 18-18 101-117/60-73 100 GENERAL: The patient is awake, alert, and fully oriented, in no acute distress. HEAD: Normal with no signs of trauma. EYES: PERRL, extraocular movements intact, sclera anicteric, conjunctiva clear. No ptosis. ENT: Ears normal, nares patent, oropharynx clear without exudates, moist mucous membranes. NECK: Trachea midline, full range of motion, supple. LUNGS: Breath sounds equal HEART: Regular rate and rhythm ABDOMEN: Abdominal pain - chronic, No abdominal distention, tolerating meals. EXTREMITIES: 2+ pulses, warm, well-perfused, no edema. NEUROLOGICAL: Normal speech, gait not observed. PSYCH: Normal mood, normal affect. SKIN: Warm, dry, normal turgor, no rashes or lesions noted Laboratory Results - last 24 hr 11/14/16 11/14/16 08:35 08:35 WBC 3.9 L RBC 3.34 L Hgb 9.7 L Hct 29.5 L MCV 88.4 MCHC 32.8 RDW 25.8 H MPV 8.2 Neutrophils % 48.0 D Lymphocytes % 30.0 D Monocytes % 14.0 H Eosinophils % 2.0 Basophils % 2.0 Metamyelocytes 1 D Myelocytes 1 Differential Comment Manual diff done Reactive Lymphocytes 2 Platelet Estimate Decreased Sodium 140 Potassium 4.0 Chloride 108 H Carbon Dioxide 24 Anion Gap 8 BUN 12 Creatinine 0.6 L Creat Clearance w eGFR > 60 Random Glucose 84 Calcium 8.1 L Total Bilirubin 2.8 H AST 59 H ALT 19 Alkaline Phosphatase 232 H Total Protein 6.7 Albumin 2.6 L Active Medications Generic Name Dose Route Start Last Admin Trade Name Freq PRN Reason Stop Dose Admin Cyanocobalamin 100 mcg 11/08/16 10:00 11/13/16 09:47 Vitamin B12 - PO 100 mcg DAILY RANDALL Administration Folic Acid 1 mg 11/07/16 10:00 11/14/16 09:57 Folic Acid - PO 1 mg DAILY RANDALL Administration Magnesium Oxide 400 mg 11/11/16 22:00 11/14/16 09:56 Mag-Ox - PO 400 mg BID RANDALL Administration Multivitamins/Minerals/Vitamin C 1 tab 11/09/16 10:00 11/14/16 09:56 Tab-A-Vit - PO 1 tab DAILY RANDALL Administration Nadolol 20 mg 11/11/16 10:00 11/14/16 09:57 Corgard - PO 20 mg DAILY RANDALL Administration Nicotine Polacrilex 2 mg 11/06/16 21:59 11/13/16 22:40 Nicorette Gum - BUC 2 mg Q2H PRN Administration NICOTINE REPLACEMENT RX Spironolactone 100 mg 11/08/16 10:00 11/14/16 09:57 Aldactone - PO 100 mg DAILY RANDALL Administration Thiamine HCl 100 mg 11/07/16 10:00 11/14/16 09:57 Vitamin B1 - PO 100 mg DAILY RANDALL Administration ASSESSMENT/PLAN: Patient is a 41 year old male with significant past medical history of alcoholic cirrhosis with ascities (s/p TIPS procedure 2012), pancreatitis, asthma, and hypertension. He was admitted on 11/06/2016 with a two day history of worsening diffuse abdominal pain. GI: Abdominal pain - chronic Assessment/Plan: Abd MRI with contrast/MRCP to likely done today to eval interhepatic ducts prior to DC Heme/onc following Liver Cirrhosis with varices Assessment/Plan: S/p TIPS procedure on 2012 On spironolactone, nadolol 20mg daily Hematology: Chronic anemia/thrombocytopenia Assessment/Plan: s/p procrit and Iron infusions Patient is a Muslim - refusing PRBC s/p platelet infusion on 11/06 Monitor platelets bleeding risk Pulmonary: Asthma - not in acute exacerbation Assessment/Plan: Duonebs as needed Cardiology: Hypertension - chronic Assessment/Plan: Monitor On Corgard F.E.N. Fluids: tolerating PO Electrolytes: monitor BMP Nutrition: regular diet Proph: GI: deferred DVT: ambulatory, scds. No AC secondary to liver dx Visit type - Emergency Visit Emergency Visit: Yes ED Registration Date: 11/06/16 Care time: The patient presented to the Emergency Department on the above date and was hospitalized for further evaluation of their emergent condition. - New Patient This patient is new to me today: No - Critical Care Critical Care patient: No - Discharge Referral Referred to [facility] Med P.C.: No
[2016-11-14] MEDS: traMADol HCL 50 MG TABLET PO PRN ×2 (13:19→21:47)
[2016-11-14] MEDS: NICOTINE POLACRILEX 2 MG GUM BUC PRN (16:34)
[2016-11-14] MEDS ORDERED: morphine CARPU-JECT 2 MG/1 ML DISP.SYRIN IVPUSH ONE (17:15)
[2016-11-15 07:57] LABS: MCHC 32.7 g/dl (32.0-35.9); MEAN CELL VOLUME 88.7 fl (80-96); MEAN PLT VOLUME 7.7 fl (7.5-11.1); RDW 25.7 % (11.9-15.9); WHITE BLOOD COUNT 4.4 K/mm3 (4.0-10.0)
[2016-11-15 08:46] LABS: ALBUMIN 2.7 g/dl (3.4-5.0); ANION GAP 7 (8-16); CALCIUM 8.1 mg/dL (8.5-10.1); CO2 24 mmol/L (21-32); COCKROFT - GAULT 217.54; CREATININE 0.5 mg/dL (0.7-1.3); GLUCOSE,RANDOM 77 mg/dL (74-106); SGOT/AST 69 U/L (15-37); SGPT/ALT 23 U/L (12-78)
[2016-11-15 08:48] LABS: ALK PHOS 242 U/L (45-117); TOT PROT 7.1 g/dl (6.4-8.2)
[2016-11-15] MEDS: NADOLOL 20 MG TABLET (FP) PO SCH (10:09)
[2016-11-15] MEDS: THIAMINE HCL 100 MG TABLET (FP) PO SCH (10:09)
[2016-11-15] MEDS: MAGNESIUM OXIDE 400 MG TABLET (FP) PO SCH (10:09)
[2016-11-15] MEDS: MULTIVITAMINS (DAILY MVI) TABLET (FP) PO SCH (10:09)
[2016-11-15] MEDS: SPIRONOLACTONE 25 MG TABLET (FP) PO SCH (10:09)
[2016-11-15] MEDS: FOLIC ACID 1 MG TABLET (FP) PO SCH (10:09)
[2016-11-15] MEDS: CYANOCOBALAMIN (VITAMIN B-12) 100 MCG TABLET PO SCH (10:10)
[2016-11-15] MEDS: traMADol HCL 50 MG TABLET PO PRN (10:11)
--- NOTE | 2016-11-15 11:16 | PN ---
Progress Note (short form) - Note Progress Note: Patient seen and examined Feels well Last Vital Signs Temp Pulse Resp BP Pulse Ox 98.8 F 69 20 106/62 96 11/15/16 06:00 11/15/16 06:00 11/15/16 06:00 11/15/16 06:00 11/14/16 21:00 Cor: RSR, No murmurs, No gallops Lungs: Clear to P&A Abd: Soft, Normal bowel sounds, No organomegaly Ext:No significant edema Abnormal Lab Results 11/14/16 11/15/16 11/15/16 08:35 06:00 06:00 RBC 3.48 L Hgb 10.1 L Hct 30.9 L RDW 25.7 H Plt Count 102 L D Monocytes % 14.0 H Anion Gap 7 L Creatinine 0.5 L Calcium 8.1 L Total Bilirubin 3.0 H AST 69 H Alkaline Phosphatase 242 H Albumin 2.7 L Active Medications Generic Name Dose Route Start Last Admin Trade Name Freq PRN Reason Stop Dose Admin Cyanocobalamin 100 mcg 11/08/16 10:00 11/15/16 10:10 Vitamin B12 - PO Not Given DAILY RANDALL Folic Acid 1 mg 11/07/16 10:00 11/15/16 10:09 Folic Acid - PO 1 mg DAILY RANDALL Administration Magnesium Oxide 400 mg 11/11/16 22:00 11/15/16 10:09 Mag-Ox - PO 400 mg BID RANDALL Administration Multivitamins/Minerals/Vitamin C 1 tab 11/09/16 10:00 11/15/16 10:09 Tab-A-Vit - PO 1 tab DAILY RANDALL Administration Nadolol 20 mg 11/11/16 10:00 11/15/16 10:09 Corgard - PO 20 mg DAILY RANDALL Administration Nicotine Polacrilex 2 mg 11/06/16 21:59 11/14/16 16:34 Nicorette Gum - BUC 2 mg Q2H PRN Administration NICOTINE REPLACEMENT RX Spironolactone 100 mg 11/08/16 10:00 11/15/16 10:09 Aldactone - PO 100 mg DAILY RANDALL Administration Thiamine HCl 100 mg 11/07/16 10:00 11/15/16 10:09 Vitamin B1 - PO 100 mg DAILY RANDALL Administration Tramadol HCl 50 mg 11/14/16 12:46 11/15/16 10:11 Ultram - PO 50 mg Q8H PRN Administration PAIN A/P 41 y/o patient with cirrhosis, coagulopathy, thrombocytopenia,pancytopenia, jehovahs wittness, comes in for alcohol detox. Pancytopenia --due to cirrhosis , portal HTN+ marrow suppression from alcohol s/p 1 unit monodonor platelets Patient is accepting to take monodonor platelets, fresh frozen plasma but not PRBCs s/p 5 days of procrit/iv iron Improved blood counts Capsular fluid in the liver --also signal abnormality n the liver and elevated CEA willneed MRI/MRCP or triple phase CT to r/o neoplastic disease discussed this at length with patient He tells me that he follows up at [facility]. I asked hime to followup with liver team at [facility] regarding this. I discussed with the hospitalist and she is to arrange outpatient appointment for patient in liver oncology team there Also gave him my office contacty no. to follow up and discussed that this is very improtant to f/u to r/o early malignancy He understands.
[2016-11-15 11:49] LABS: PLATELET COUNT 102 K/MM3 (134-434)
[2016-11-15 11:50] LABS: PLATELET ESTIMATE DECREASED (NORMAL)
--- NOTE | 2016-11-15 12:57 | DS ---
Physical Exam: SUBJECTIVE: Patient seen and examined. States he has chronic abdominal pain. Denies nausea or vomiting. Does not take medications at home but at one time took Morphine PO He is concerned over becoming addicted to morphine. His mother is at the bedside and she is expressing the same concern. OBJECTIVE: Will start on Ultram prn for pain Monitor pain levels OBJECTIVE: Vital Signs Period Temp Pulse Resp BP Sys/Johnson Pulse Ox Last 24 Hr 97.6 F-98.8 F 68-77 18-20 102-111/59-70 96 PHYSICAL EXAM GENERAL: The patient is awake, alert, and fully oriented, in no acute distress. HEAD: Normal with no signs of trauma. EYES: PERRL, extraocular movements intact, sclera anicteric, conjunctiva clear. No ptosis. ENT: Ears normal, nares patent, oropharynx clear without exudates, moist mucous membranes. NECK: Trachea midline, full range of motion, supple. LUNGS: Breath sounds equal HEART: Regular rate and rhythm ABDOMEN: Abdominal pain - chronic, No abdominal distention, tolerating meals. EXTREMITIES: 2+ pulses, warm, well-perfused, no edema. NEUROLOGICAL: Normal speech, gait not observed. PSYCH: Normal mood, normal affect. SKIN: Warm, dry, normal turgor, no rashes or lesions noted LABS Laboratory Results - last 24 hr 11/15/16 11/15/16 06:00 06:00 WBC 4.4 RBC 3.48 L Hgb 10.1 L Hct 30.9 L MCV 88.7 MCHC 32.7 RDW 25.7 H Plt Count 102 L D MPV 7.7 Neutrophils % Y Lymphocytes % Y Platelet Estimate Decreased Platelet Comment No clumping noted Sodium 137 Potassium 4.3 Chloride 106 Carbon Dioxide 24 Anion Gap 7 L BUN 10 Creatinine 0.5 L Creat Clearance w eGFR > 60 Random Glucose 77 Calcium 8.1 L Total Bilirubin 3.0 H AST 69 H ALT 23 D Alkaline Phosphatase 242 H Total Protein 7.1 Albumin 2.7 L HOSPITAL COURSE: Date of Admission:11/06/16 Date of Discharge: 11/15/16 ASSESSMENT/PLAN: Patient is a 41 year old male with significant past medical history of alcoholic cirrhosis with ascities (s/p TIPS procedure 2012), pancreatitis, asthma, and hypertension. He was admitted on 11/06/2016 with a two day history of worsening diffuse abdominal pain. GI: Abdominal pain - chronic Assessment/Plan: Heme/onc following Follow up with an appointment at [facility] for a Liver Specialist as outpatient Will need an MRI or triple phase CT at [facility] Liver Cirrhosis with varices Assessment/Plan: S/p TIPS procedure on 2012 On spironolactone, nadolol 20mg daily Hematology: Chronic anemia/thrombocytopenia Assessment/Plan: s/p procrit and Iron infusions Patient is a Spiritism - refusing PRBC s/p platelet infusion on 11/06 Monitor platelets bleeding risk Pulmonary: Asthma - not in acute exacerbation Assessment/Plan: Duonebs as needed Cardiology: Hypertension - chronic Assessment/Plan: Monitor On Corgard Minutes to complete discharge: 60 Discharge Summary Reason For Visit: [facility] CIRRHOSIS/THROMBOCYTOPENIA Current Active Problems Alcohol dependence with uncomplicated withdrawal (Acute) Alcoholic cirrhosis of liver (Acute) Thrombocytopenia (Acute) Condition: Stable - Instructions Diet, Activity, Other Instructions: Please follow up with an appointment at [facility] for a Liver Specialist [phone]. I have spoken with them and They will be contacting you with an appointment date and time. You will need an MRI or triple phase CT at [facility] Please also see Dr. Barbour, machine gunner. You can call and make an appointment with her @ [phone] Please return to the emergency room any new or persistent symptoms. Please follow up with the PCP assigned to you. Referrals: Angle Seth MD [Staff Physician] - STAFF,NOT ON [Primary Care Provider] - Eyal Guerra MD [Staff Physician] - Disposition: HOME - Home Medications Comprehensive Discharge Medication List: Ambulatory Orders Albuterol 0.083% Nebulizer Palmira [Ventolin 0.083% Nebulizer Soln -] 1 neb NEB Q6H 11/07/16 Cholestyramine (with Sugar) [Cholestyramine Packet] 4 gm PO DAILY 11/07/16 Folic Acid 1 mg PO DAILY 11/07/16 Pantoprazole Sodium [Protonix -] 40 mg PO BID 11/07/16 Spironolactone [Aldactone] 100 mg PO DAILY 11/07/16 Thiamine HCl [Vitamin B1 -] 100 mg PO DAILY 11/07/16 Cyanocobalamin [Vitamin B12 -] 100 mcg PO DAILY tablet 05/05/17 Folic Acid - 1 mg PO DAILY #30 tablet 11/15/16 Magnesium Oxide [Mag-Ox -] 400 mg PO BID #60 tablet 11/15/16 Multivitamins [Multivit ([facility] Formulary)] 1 tab PO DAILY tab 11/15/16 Nadolol [Corgard -] 20 mg PO DAILY #60 tablet 11/15/16 Pantoprazole Sodium [Protonix] 40 mg PO DAILY #30 tablet. 11/15/16 Thiamine HCl [Vitamin B1 -] 100 mg PO DAILY tablet 11/15/16 This patient is new to me today: No Emergency Visit: Yes ED Registration Date: 11/06/16 Care time: The patient presented to the Emergency Department on the above date and was hospitalized for further evaluation of their emergent condition. Critical Care patient: No - Discharge Referral Referred to [facility] Med P.C.: No
[2016-11-15 14:27] VITALS: BP 109/69; PULSE 74; TEMP 99
== END 2016-11-15 17:32 | disposition home or self-care (01) | DRG 661 ==
LOC: JER 15:49 → JERBED 20:27 → UNDOADMIN 20:47 → J4S 11-07 01:17 → J7W 11-13 23:47
PROVIDERS: ADMIT Internal Medicine; ATTEND Nurse Practitioner Family
PROC: 30233R1 Transfusion of Nonautologous Platelets into Peripheral Vein, Percutaneous Approach (ICD-10-PCS; principal; 2016-11-07)
PROC: HZ2ZZZZ Detoxification Services for Substance Abuse Treatment (ICD-10-PCS; 2016-11-07)
DX: D69.6 Thrombocytopenia, unspecified (principal); K70.31 Alcoholic cirrhosis of liver with ascites; I10 Essential (primary) hypertension; K86.0 Alcohol-induced chronic pancreatitis; F17.210 Nicotine dependence, cigarettes, uncomplicated; D61.818 Other pancytopenia; E83.42 Hypomagnesemia; R74.0 Nonspecific elevation of levels of transaminase and lactic acid dehydrogenase [LDH]; E80.6 Other disorders of bilirubin metabolism; F10.230 Alcohol dependence with withdrawal, uncomplicated; D64.9 Anemia, unspecified; E87.6 Hypokalemia; D68.9 Coagulation defect, unspecified; K76.6 Portal hypertension; D73.1 Hypersplenism; H53.2 Diplopia; H53.8 Other visual disturbances
CPT/HCPCS: 36415; 36430; 70470-TC; 71010-TC; 74177-TC; 76700-TC; 80048; 80053; 80076; 81003; 81015; 82105; 82140; 82248; 82378; 82607; 82746; 83540; 83550; 83690; 83735; 84100; 85025; 85027; 85610; 85730; 86301; 86850; 86900; 86901; 87389; 93005; 93010; 93976; 99285-25; J0885; J1756; P9034; P9038; Q9967